=== PATIENT | female | born 1930 | race Caucasian/White ===

== ENCOUNTER 2016-09-24 12:04 | Emergency (ER) | payer MEDICARE, BC ==
[~2016-09-24] VITALS: Ht 157.5 cm; Wt 63.5 kg
[2016-09-24] MEDS ORDERED: TIMO5OPD OU (12:26)
[2016-09-24] MEDS ORDERED: METH25TAB (12:26)
[2016-09-24] MEDS ORDERED: VALSART/HCTZ (12:26)
[2016-09-24] MEDS ORDERED: LIAL1.2T PO (12:26)
[2016-09-24] MEDS ORDERED: TYLE325T5 PO (12:27)
[2016-09-24] MEDS ORDERED: KAOP262S PO (12:27)
[2016-09-24] MEDS ORDERED: ONDANSETRON 4MG/2ML VIAL (J2405) IV ONE (13:15)
[2016-09-24] MEDS ORDERED: NS 500 ML IV ONE (13:15)
[2016-09-24 13:24] LABS: BASO % 0.3 % (0.0-1.0); EOS % 0.4 % (0.0-3.0); LARGE UNSTAINED CELL # 0.1 K/mm3 (0.0-0.4); LYMPH # 0.4 K/mm3 (1.5-4.5); LYMPH % 8.4 % (24.0-44.0); MEAN CORPUSCULAR HEMOGLOBIN 30.2 pg (27.0-33.0); MEAN CORPUSCULAR HGB CONC 33.6 g/dl (32.0-36.5); MEAN CORPUSCULAR VOLUME 90.1 fl (80.0-96.0); MONO # 0.4 K/mm3 (0.0-0.8); MONO % 10.3 % (0.0-5.0); NEUTROPHILS % 77.6 % (36.0-66.0); PLATELET COUNT, AUTOMATED 165 k/mm3 (150-450); RED CELL DISTRIBUTION WIDTH 13.6 % (11.5-14.5); WHITE BLOOD COUNT 3.8 K/mm3 (4.0-10.0)
[2016-09-24 13:33] LABS: ALBUMIN 3.7 GM/DL (3.2-5.2); ALKALINE PHOSPHATASE 50 U/L (45-117); ALT/SGPT 30 U/L (12-78); ANION GAP 8 MEQ/L (8-16); AST/SGOT 22 U/L (15-37); BILIRUBIN,DIRECT 0.1 MG/DL (0.0-0.2); BILIRUBIN,TOTAL 0.4 MG/DL (0.2-1.0); BLOOD UREA NITROGEN 16 MG/DL (7-18); CALCIUM LEVEL 9.1 MG/DL (8.8-10.2); CARBON DIOXIDE LEVEL 24 MEQ/L (21-32); CHLORIDE LEVEL 105 MEQ/L (98-107); CREATININE FOR GFR 0.76 MG/DL (0.55-1.02); GLOMERULAR FILTRATION RATE > 60.0 (>32); GLUCOSE, FASTING 113 MG/DL (83-110); POTASSIUM SERUM 3.3 MEQ/L (3.5-5.1); SODIUM LEVEL 137 MEQ/L (136-145); TOTAL PROTEIN 7.4 GM/DL (6.4-8.2)
[2016-09-24 16:59] VITALS: BP 163/71
[2016-09-24] MEDS ORDERED: ZOFR4TAB3 PO (17:54)
[2016-09-24] MEDS: POTASSIUM CHLORIDE 10 MEQ SR TABLET PO ONE ×2 (18:15→18:32)
[2016-09-26] MEDS ORDERED: ACETAMINOPHEN TAB 650MG DOSE (2X325MG) PO PRN (15:15)
[2016-09-26] MEDS ORDERED: ONDANSETRON 4MG/2ML VIAL (J2405) IV PRN (15:15)
[2016-09-26] MEDS ORDERED: NS 1,000 ML IV SCH (15:18)
--- NOTE | 2016-09-26 15:28 | HPEPDOC ---
Medical History and Physical Date of Admission 09/26/16 History and Physical ATTENDING: Dr. 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 Dr Neetu Martinez CC: diarrhea HPI: [id number] with a past medical history significant for recent ED visit 09/24/16 for N/V, diarrhea. She was diagnosed with Rotavirus and discharged home. Pt states N/V resolved, chills resoved but diarrhea has persisted. She was initially using Kaopectate for symptoms but changed to Imodium. She states diarrhea was not resolved and she was feeling fatigued with generalized abdominal pain so she came to ED today. She has had 3 BM today prior to coming to ED. She received 500cc bolus in ED. Denies any MIKE, CP, SOB, cough, palpitations, or changes in bladder habits. Upon presentation to the hospital the patient was found to have abdominal pain/ colitis, thus the hospitalist team was consulted. PMHx: Hyperthyroid- Dr Neetu Martinez osteoporosis Dr Neetu Martinez h/o colitis glaucoma HTN hypomagnesemia PSHX: appendectomy Colonoscopy 2001. Nubia. Diverticulosis. SOCHX: Resides in: [facility] Marital Status: Kids: 2 Employment: retired, owned [employer] Tobacco use: denies ETOH: occaas glass of wine Illicit Drugs: Denies Recent travel: denies Advanced directives: HCP Karla Adkins. [phone] FAMHX: Mother: old age Father: [place] Siblings: brother Emphysema Children: Alive, son with h/o Crohn's Unexpected deaths due to medical reasons: None. ROS: As noted in HPI, otherwise 11pt ROS of systems reviewed and unremarkable. PE: GEN: 86yoF, appears stated age. Well-nourished, well developed. No acute distress. Alert and oriented x 3. Pleasant, interactive. HEENT: Normocephalic, atraumatic. Pupils are equal, round, and reactive to light. Extraocular movements are intact. No nystagmus appreciated. Sclera are nonicteric. Conjunctiva without injection. Nose midline. Nasal turbinates without bogginess. EACs both patent BL. TMs both visualized and calderon with good cone of light, no bulging or erythema. No facial asymmetry. Moist mucous membranes. Dentition fair. Pharynx pink and moist. Neck supple, trachea midline. No lymphadenopathy or thyromegaly appreciated. CHEST: Regular rate and rhythm, +S1, +S2 LUNGS: Clear to auscultation bilaterally. No wheezes, rales, or rhonchi. Breathing appears symmetric and easy. Patient is speaking in full sentences. No accessory muscle use. ABD: Round, soft, mild TTP upper abdomen Rt and left and LLQ, non-distended. + Bowel sounds throughout. No rebound or guarding. No costovertebral angle tenderness. EXT: Pulses 2+ bilaterally dorsalis pedis and radial. No lower extremity edema appreciated. Chronic venous changes LEs b/l. SKIN: [place], dry, warm. No rashes. NEURO: Alert and oriented x 3. Cranial nerves III-XII are intact. No focal deficits appreciated. CT: A/P Noncalcified gallbladder calculi. Distended gallbladder without wall thickening. In the appropriate clinical context this could represent hydrops. There is no biliary duct dilatation. The pancreatic duct is visible and measures 3 mm in diameter which is upper normal. No evidence of pancreatitis. No hydronephrosis. No bowel distension. There is wall thickening of the hepatic flexure of the colon and of the proximal descending colon. This is nonspecific. In the appropriate clinical context could represent colitis. However, this could merely be artifact from under distension. No ascites or adenopathy. EKG: Sr First degree AVB, 63 bpm. GI panel 09/24/16 ROTAVIRUS A LA 1.1 OB neg in ED. A&P: 86yoF with a past medical history significant for recent ED visit 09/24/16 for N/V, diarrhea. She was diagnosed with Rotavirus and discharged home. Pt states N/V resolved, chills resoved but diarrhea has persisted. She was initially using Kaopectate for symptoms but changed to Imodium. She states diarrhea was not resolved and she was feeling fatigued with generalized abdominal pain so she came to ED today. The patient will be admitted to CT for at least [address] Jacobo's service. Pt is discussed with Dr Nunez. 1. Abdominal pain/diarrhea/gastroenteritis. GI panel 09/24/16 with Rotavirus. GI panel today pending, has not had BM in ED. Proceed with symptomatic treatment. Pt afebrile/no leukocytosis, does not appear to have colitis. Clear fluids and AAT. IVF x 500cc in ED will continue with 75cc/hr for gentle hydration. UA/UC/ BC pending. Zofran prn. Imodium as needed. 2. H/O colitis. Lialda. Stool OB neg in ED. 3. Hypokalemia. S/P supplement in ED. Recheck at 6 PM. 4. Hypomagnesemia. Check Mag level. 5. HTN. Cont Avapro/ HCTZ with hold parameter. 6. glaucoma. Cont outpt Timolol. 7. Hyperthyroid. Cont Tapazole. DVT prophylaxis. Lovenox. The patient is a Full code. Vital Signs Vital Signs Date Time Temp Pulse Resp B/P (MAP) Pulse Ox O2 Delivery O2 Flow Rate FiO2 09/24/16 17:44 70 09/24/16 16:59 163/71 (101) 09/24/16 16:49 97 09/24/16 12:29 98.1 18 Room Air Laboratory Data Labs 24H Item Value Date Time Sodium Level 137 MEQ/L 09/26/16 1033 Potassium Level 3.0 MEQ/L L 09/26/16 1033 Chloride Level 104 MEQ/L 09/26/16 1033 Carbon Dioxide Level 26 MEQ/L 09/26/16 1033 Anion Gap 7 MEQ/L L 09/26/16 1033 Blood Urea Nitrogen 12 MG/DL 09/26/16 1033 Creatinine 0.67 MG/DL 09/26/16 1033 Glomerular Filtration Rate > 60.0 09/26/16 1033 Fasting Glucose 88 MG/DL 09/26/16 1033 Lactic Acid Level 1.1 MMOL/L 09/26/16 1033 Calcium Level 8.1 MG/DL L 09/26/16 1033 Total Bilirubin 0.6 MG/DL 09/26/16 1033 Direct Bilirubin 0.2 MG/DL 09/26/16 1033 Aspartate Amino Transf (AST/SGOT) 34 U/L 09/26/16 1033 Alanine Aminotransferase (ALT/SGPT) 36 U/L 09/26/16 1033 Alkaline Phosphatase 42 U/L L 09/26/16 1033 Total Protein 7.0 GM/DL 09/26/16 1033 Albumin 3.3 GM/DL 09/26/16 1033 Albumin/Globulin Ratio 0.89 L 09/26/16 1033 Lipase 211 U/L 09/26/16 1033 White Blood Count 3.6 K/mm3 L 09/26/16 1033 Red Blood Count 4.53 M/mm3 09/26/16 1033 Hemoglobin 14.0 g/dl 09/26/16 1033 Hematocrit 40.5 % 09/26/16 1033 Mean Corpuscular Volume 89.4 fl 09/26/16 1033 Mean Corpuscular Hemoglobin 30.9 pg 09/26/16 1033 Mean Corpuscular Hemoglobin Concent 34.6 g/dl 09/26/16 1033 Red Cell Distribution Width 13.5 % 09/26/16 1033 Platelet Count 150 k/mm3 09/26/16 1033 Neutrophils (%) (Auto) 59.7 % 09/26/16 1033 Lymphocytes (%) (Auto) 25.1 % 09/26/16 1033 Monocytes (%) (Auto) 10.0 % H 09/26/16 1033 Eosinophils (%) (Auto) 0.8 % 09/26/16 1033 Basophils (%) (Auto) 0.5 % 09/26/16 1033 Large Unclassified Cells % 3.9 % 09/26/16 1033 Neutrophils # (Auto) 2.2 K/mm3 09/26/16 1033 Lymphocytes # (Auto) 1.0 K/mm3 L 09/26/16 1033 Monocytes # (Auto) 0.4 K/mm3 09/26/16 1033 Eosinophils # (Auto) 0.0 K/mm3 09/26/16 1033 Basophils # (Auto) 0.0 K/mm3 09/26/16 1033 Large Unclassified Cells # 0.1 K/mm3 09/26/16 1033 Prothrombin Time 13.9 SECONDS 09/26/16 1033 Prothromb Time International Ratio 1.06 09/26/16 1033 Activated Partial Thromboplast Time 24.1 SECONDS L 09/26/16 1033 Microbiology Microbiology 09/24/16 Gastrointestinal Tract Panel (PCR) - Final, Complete Rotavirus A Home Medications Scheduled (Valsartan/Hydrochlorothia 160-12.5 mg) 1 Tab Tab, 1 TAB PO DAILY (Osteo Bi-Flex Joint Shiel) 1 Tab Tab, 1 TAB PO DAILY (Viactiv 500-500-40 mg-Unt-Mcg) 1 Chw Chw, 2 CHW PO DAILY Cranberry (Cranberry) 400 Mg Tab, 400 MG PO BID Magnesium Chloride (Mag64) 64 Mg Tabcr, 64 MG PO DAILY Mesalamine (Lialda) 1.2 Gm Tab, 1.2 GRAM PO 3XW THURSDAY, THURSDAY, AND FRIDAYS Methimazole (Tapazole) 5 Mg Tab, 5 MG PO 5XW , THU,,SAT,SUN Multivitamins (Ocuvite Eye Health Formul) 1 Cap Cap, 1 CAP PO DAILY Multivitamins *[facility] STOCKED* (Thera M Plus *[facility] STOCKED*) 1 Tab Tab, 1 TAB PO DAILY Timolol Maleate (Timolol Maleate) 0.5 % Le, 1 DROP OU BID Scheduled PRN Acetaminophen (Tylenol) 325 Mg Tab, 650 MG PO Q6H PRN for pain Loperamide HCl (Loperamide A-D) 2 Mg Tab, 4 MG PO Q6H PRN for DIARRHEA Allergies Coded Allergies: No Known Allergies (Unverified , 09/24/16) Rayna Mccabe Sep 26, 2016 15:28
[2016-09-26] MEDS ORDERED: ENTER DRUG NAME HERE (PATIENT'S OWN MED) PO SCH (15:30)
[2016-09-26] MEDS ORDERED: LOPERAMIDE 2 MG CAP PO PRN (15:30)
[2016-09-26] MEDS ORDERED: TIMOLOL MALEATE 0.5% OPHTH SOLN 5 ML OU SCH (21:00)
[2016-09-27] MEDS ORDERED: hydroCHLOROthiazide 12.5 MG CAPSULE PO SCH (09:00)
[2016-09-27] MEDS ORDERED: MAGNESIUM CHLORIDE 64 MG TABCR (SLO MAG) PO SCH (09:00)
[2016-09-27] MEDS ORDERED: ENOXAPARIN 40 MG/0.4 ML SYRINGE (J1650) SC SCH (09:00)
[2016-09-27] MEDS ORDERED: VALSARTAN 80 MG TAB (DIOVAN) PO SCH (09:00)
== END 2016-09-24 18:35 | disposition home or self-care (01) ==
LOC: M ED 13:14
DX: A08.0 Rotaviral enteritis (principal); E87.6 Hypokalemia; K52.839 Microscopic colitis, unspecified; Z79.899 Other long term (current) drug therapy

== ENCOUNTER 2016-09-26 10:08 | Inpatient (IN) | payer MEDICARE, BC ==
[~2016-09-26] VITALS: Ht 157.5 cm; Wt 63.2 kg
[~2016-09-26 10:08] MED LIST: KAOP262S PO; LIAL1.2T PO; METH25TAB; TIMO5OPD OU; TYLE325T5 PO; VALSART/HCTZ; ZOFR4TAB3 PO
[2016-09-26] MEDS ORDERED: NS 500 ML IV ONE (10:30)
[2016-09-26 10:44] LABS: BASO % 0.5 % (0.0-1.0); EOS % 0.8 % (0.0-3.0); LARGE UNSTAINED CELL # 0.1 K/mm3 (0.0-0.4); LARGE UNSTAINED CELL % 3.9 % (0.0-4.0); LYMPH % 25.1 % (24.0-44.0); MEAN CORPUSCULAR HEMOGLOBIN 30.9 pg (27.0-33.0); MEAN CORPUSCULAR HGB CONC 34.6 g/dl (32.0-36.5); MEAN CORPUSCULAR VOLUME 89.4 fl (80.0-96.0); MONO # 0.4 K/mm3 (0.0-0.8); NEUTROPHILS # 2.2 K/mm3 (1.8-7.7); NEUTROPHILS % 59.7 % (36.0-66.0); PLATELET COUNT, AUTOMATED 150 k/mm3 (150-450); RED CELL DISTRIBUTION WIDTH 13.5 % (11.5-14.5); WHITE BLOOD COUNT 3.6 K/mm3 (4.0-10.0)
[2016-09-26 10:47] LABS: INR 1.06
[2016-09-26 11:07] LABS: ALBUMIN 3.3 GM/DL (3.2-5.2); ALBUMIN/GLOBULIN RATIO 0.89 (1.00-1.93); ALKALINE PHOSPHATASE 42 U/L (45-117); ALT/SGPT 36 U/L (12-78); ANION GAP 7 MEQ/L (8-16); AST/SGOT 34 U/L (15-37); BILIRUBIN,DIRECT 0.2 MG/DL (0.0-0.2); BILIRUBIN,TOTAL 0.6 MG/DL (0.2-1.0); BLOOD UREA NITROGEN 12 MG/DL (7-18); CALCIUM LEVEL 8.1 MG/DL (8.8-10.2); CARBON DIOXIDE LEVEL 26 MEQ/L (21-32); CHLORIDE LEVEL 104 MEQ/L (98-107); CREATININE FOR GFR 0.67 MG/DL (0.55-1.02); GLOMERULAR FILTRATION RATE > 60.0 (>32); GLUCOSE, FASTING 88 MG/DL (83-110); SODIUM LEVEL 137 MEQ/L (136-145)
[2016-09-26] MEDS ORDERED: KETOROLAC 30 MG/ML VIAL (J1885) IV ONE (12:00)
[2016-09-26] MEDS ORDERED: ISOVUE-370 76% 100ML VIAL (Q9967) As Ordered ONE (12:42)
[2016-09-26] MEDS ORDERED: LOPE2TAB3 PO (13:08)
[2016-09-26] MEDS ORDERED: TAPA5TAB PO (13:08)
[2016-09-26] MEDS ORDERED: VALS160T PO (13:10)
[2016-09-26] MEDS ORDERED: VITMTA PO (13:14)
[2016-09-26] MEDS ORDERED: CALC600T57 PO (13:14)
[2016-09-26] MEDS ORDERED: OSTETAB7 PO (13:14)
[2016-09-26] MEDS ORDERED: CRAN400T3 PO (13:14)
[2016-09-26] MEDS ORDERED: OCUVCAP5 PO (13:14)
[2016-09-26] MEDS ORDERED: MAGN64TASA PO (13:14)
[2016-09-26] MEDS ORDERED: VIAC8.5C PO (13:15)
--- NOTE | 2016-09-26 13:18 | REP ---
Half CT abdomen pelvis with IV contrast, without bowel contrast: Comparison is 2012, CT abdomen, pelvis not included. The visualized lung carlson are unremarkable. The hepatic parenchyma is homogeneous and unremarkable. There are noncalcified gallbladder calculi. The gallbladder distended measuring up to this 4.4 cm transverse diameter. This is compatible with hydrops in the appropriate clinical setting, however there is no gallbladder wall thickening or pericholecystic fluid. There is no intrahepatic or extrahepatic biliary duct dilatation. The pancreas is normal size. The pancreatic duct is visible measuring 3 mm in diameter which is upper normal to minimally distended. There is no peripancreatic inflammation. Spleen is unremarkable. The adrenals, kidneys and abdominal aorta are by O except for calcified atheroma. There is no bowel distension. There is mild wall thickening of the transverse colon at the hepatic flexure and of the descending colon. This could be artifact from incomplete colonic distension. In the appropriate clinical setting this could represent colitis. Pelvis: The uterus and adnexa are unremarkable. The bladder is distended but otherwise unremarkable. There is no adenopathy or ascites. The the patient indicates she has had appendectomy. Impression: Noncalcified gallbladder calculi. Distended gallbladder without wall thickening. In the appropriate clinical context this could represent hydrops. There is no biliary duct dilatation. The pancreatic duct is visible and measures 3 mm in diameter which is upper normal. No evidence of pancreatitis. No hydronephrosis. No bowel distension. There is wall thickening of the hepatic flexure of the colon and of the proximal descending colon. This is nonspecific. In the appropriate clinical context could represent colitis. However, this could merely be artifact from under distension. No ascites or adenopathy. Signed by Daquan Grayson MD 09/26/2016 01:10 P
--- NOTE | 2016-09-26 15:32 | HPEPDOC ---
Medical History and Physical Date of Admission 09/26/16 History and Physical 09/26/16 History and Physical ATTENDING: Dr. 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 Dr Neetu Martinez CC: diarrhea HPI: [id number] with a past medical history significant for recent ED visit 09/24/16 for N/V, diarrhea. She was diagnosed with Rotavirus and discharged home. Pt states N/V resolved, chills resoved but diarrhea has persisted. She was initially using Kaopectate for symptoms but changed to Imodium. She states diarrhea was not resolved and she was feeling fatigued with generalized abdominal pain so she came to ED today. She has had 3 BM today prior to coming to ED. She received 500cc bolus in ED. Denies any MIKE, CP, SOB, cough, palpitations, or changes in bladder habits. Upon presentation to the hospital the patient was found to have abdominal pain/ colitis, thus the hospitalist team was consulted. PMHx: Hyperthyroid- Dr Neetu Martinez osteoporosis Dr Neetu Martinez h/o colitis glaucoma HTN hypomagnesemia PSHX: appendectomy Colonoscopy 2001. Nubia. Diverticulosis. SOCHX: Resides in: [facility] Marital Status: Kids: 2 Employment: retired, owned [employer] Tobacco use: denies ETOH: occaas glass of wine Illicit Drugs: Denies Recent travel: denies Advanced directives: HCP Karla Adkins. [phone] FAMHX: Mother: old age Father: [place] Siblings: brother Emphysema Children: Alive, son with h/o Crohn's Unexpected deaths due to medical reasons: None. ROS: As noted in HPI, otherwise 11pt ROS of systems reviewed and unremarkable. PE: GEN: 86yoF, appears stated age. Well-nourished, well developed. No acute distress. Alert and oriented x 3. Pleasant, interactive. HEENT: Normocephalic, atraumatic. Pupils are equal, round, and reactive to light. Extraocular movements are intact. No nystagmus appreciated. Sclera are nonicteric. Conjunctiva without injection. Nose midline. Nasal turbinates without bogginess. EACs both patent BL. TMs both visualized and calderon with good cone of light, no bulging or erythema. No facial asymmetry. Moist mucous membranes. Dentition fair. Pharynx pink and moist. Neck supple, trachea midline. No lymphadenopathy or thyromegaly appreciated. CHEST: Regular rate and rhythm, +S1, +S2 LUNGS: Clear to auscultation bilaterally. No wheezes, rales, or rhonchi. Breathing appears symmetric and easy. Patient is speaking in full sentences. No accessory muscle use. ABD: Round, soft, mild TTP upper abdomen Rt and left and LLQ, non-distended. + Bowel sounds throughout. No rebound or guarding. No costovertebral angle tenderness. EXT: Pulses 2+ bilaterally dorsalis pedis and radial. No lower extremity edema appreciated. Chronic venous changes LEs b/l. SKIN: [place], dry, warm. No rashes. NEURO: Alert and oriented x 3. Cranial nerves III-XII are intact. No focal deficits appreciated. CT: A/P Noncalcified gallbladder calculi. Distended gallbladder without wall thickening. In the appropriate clinical context this could represent hydrops. There is no biliary duct dilatation. The pancreatic duct is visible and measures 3 mm in diameter which is upper normal. No evidence of pancreatitis. No hydronephrosis. No bowel distension. There is wall thickening of the hepatic flexure of the colon and of the proximal descending colon. This is nonspecific. In the appropriate clinical context could represent colitis. However, this could merely be artifact from under distension. No ascites or adenopathy. EKG: Sr First degree AVB, 63 bpm. GI panel 09/24/16 ROTAVIRUS A LA 1.1 OB neg in ED. A&P: 86yoF with a past medical history significant for recent ED visit 09/24/16 for N/V, diarrhea. She was diagnosed with Rotavirus and discharged home. Pt states N/V resolved, chills resoved but diarrhea has persisted. She was initially using Kaopectate for symptoms but changed to Imodium. She states diarrhea was not resolved and she was feeling fatigued with generalized abdominal pain so she came to ED today. The patient will be admitted to [place] for at least [address] Jacobo's service. Pt is discussed with Dr Nunez. 1. Abdominal pain/diarrhea/gastroenteritis. GI panel 09/24/16 with Rotavirus. GI panel today pending, has not had BM in ED. Proceed with symptomatic treatment. Pt afebrile/no leukocytosis, does not appear to have colitis. Clear fluids and AAT. IVF x 500cc in ED will continue with 75cc/hr for gentle hydration. UA/UC/ BC pending. Zofran prn. Imodium as needed. 2. H/O colitis. Lialda. Stool OB neg in ED. 3. Hypokalemia. S/P supplement in ED. Recheck at 6 PM. 4. Hypomagnesemia. Check Mag level. 5. HTN. Cont Avapro/ HCTZ with hold parameter. 6. glaucoma. Cont outpt Timolol. 7. Hyperthyroid. Cont Tapazole. DVT prophylaxis. Lovenox. The patient is a Full code. Vital Signs Vital Signs Date Time Temp Pulse Resp B/P (MAP) Pulse Ox O2 Delivery O2 Flow Rate FiO2 09/24/16 17:44 70 09/24/16 16:59 163/71 (101) 09/24/16 16:49 97 09/24/16 12:29 98.1 18 Room Air Laboratory Data Labs 24H Item Value Date Time Sodium Level 137 MEQ/L 09/26/16 1033 Potassium Level 3.0 MEQ/L L 09/26/16 1033 Chloride Level 104 MEQ/L 09/26/16 1033 Carbon Dioxide Level 26 MEQ/L 09/26/16 1033 Anion Gap 7 MEQ/L L 09/26/16 1033 Blood Urea Nitrogen 12 MG/DL 09/26/16 1033 Creatinine 0.67 MG/DL 09/26/16 1033 Glomerular Filtration Rate > 60.0 09/26/16 1033 Fasting Glucose 88 MG/DL 09/26/16 1033 Lactic Acid Level 1.1 MMOL/L 09/26/16 1033 Calcium Level 8.1 MG/DL L 09/26/16 1033 Total Bilirubin 0.6 MG/DL 09/26/16 1033 Direct Bilirubin 0.2 MG/DL 09/26/16 1033 Aspartate Amino Transf (AST/SGOT) 34 U/L 09/26/16 1033 Alanine Aminotransferase (ALT/SGPT) 36 U/L 09/26/16 1033 Alkaline Phosphatase 42 U/L L 09/26/16 1033 Total Protein 7.0 GM/DL 09/26/16 1033 Albumin 3.3 GM/DL 09/26/16 1033 Albumin/Globulin Ratio 0.89 L 09/26/16 1033 Lipase 211 U/L 09/26/16 1033 White Blood Count 3.6 K/mm3 L 09/26/16 1033 Red Blood Count 4.53 M/mm3 09/26/16 1033 Hemoglobin 14.0 g/dl 09/26/16 1033 Hematocrit 40.5 % 09/26/16 1033 Mean Corpuscular Volume 89.4 fl 09/26/16 1033 Mean Corpuscular Hemoglobin 30.9 pg 09/26/16 1033 Mean Corpuscular Hemoglobin Concent 34.6 g/dl 09/26/16 1033 Red Cell Distribution Width 13.5 % 09/26/16 1033 Platelet Count 150 k/mm3 09/26/16 1033 Neutrophils (%) (Auto) 59.7 % 09/26/16 1033 Lymphocytes (%) (Auto) 25.1 % 09/26/16 1033 Monocytes (%) (Auto) 10.0 % H 09/26/16 1033 Eosinophils (%) (Auto) 0.8 % 09/26/16 1033 Basophils (%) (Auto) 0.5 % 09/26/16 1033 Large Unclassified Cells % 3.9 % 09/26/16 1033 Neutrophils # (Auto) 2.2 K/mm3 09/26/16 1033 Lymphocytes # (Auto) 1.0 K/mm3 L 09/26/16 1033 Monocytes # (Auto) 0.4 K/mm3 09/26/16 1033 Eosinophils # (Auto) 0.0 K/mm3 09/26/16 1033 Basophils # (Auto) 0.0 K/mm3 09/26/16 1033 Large Unclassified Cells # 0.1 K/mm3 09/26/16 1033 Prothrombin Time 13.9 SECONDS 09/26/16 1033 Prothromb Time International Ratio 1.06 09/26/16 1033 Activated Partial Thromboplast Time 24.1 SECONDS L 09/26/16 1033 Microbiology Microbiology 09/24/16 Gastrointestinal Tract Panel (PCR) - Final, Complete Rotavirus A Home Medications Scheduled (Valsartan/Hydrochlorothia 160-12.5 mg) 1 Tab Tab, 1 TAB PO DAILY (Osteo Bi-Flex Joint Shiel) 1 Tab Tab, 1 TAB PO DAILY (Viactiv 500-500-40 mg-Unt-Mcg) 1 Chw Chw, 2 CHW PO DAILY Cranberry (Cranberry) 400 Mg Tab, 400 MG PO BID Magnesium Chloride (Mag64) 64 Mg Tabcr, 64 MG PO DAILY Mesalamine (Lialda) 1.2 Gm Tab, 1.2 GRAM PO 3XW THURSDAY, THURSDAY, AND FRIDAYS Methimazole (Tapazole) 5 Mg Tab, 5 MG PO 5XW , THU,THUR,SAT,SUN Multivitamins (Ocuvite Eye Health Formul) 1 Cap Cap, 1 CAP PO DAILY Multivitamins *[facility] STOCKED* (Thera M Plus *[facility] STOCKED*) 1 Tab Tab, 1 TAB PO DAILY Timolol Maleate (Timolol Maleate) 0.5 % Le, 1 DROP OU BID Scheduled PRN Acetaminophen (Tylenol) 325 Mg Tab, 650 MG PO Q6H PRN for pain Loperamide HCl (Loperamide A-D) 2 Mg Tab, 4 MG PO Q6H PRN for DIARRHEA Allergies Coded Allergies: No Known Allergies (Unverified , 09/24/16) Rayna Mccabe Sep 26, 2016 15:28 Vital Signs Vital Signs Date Time Temp Pulse Resp B/P (MAP) Pulse Ox O2 Delivery O2 Flow Rate FiO2 09/26/16 14:33 74 16 181/73 (109) 09/26/16 10:14 99.0 97 Room Air Laboratory Data Labs 24H Laboratory Tests 2 09/26/16 10:33: White Blood Count 3.6L, Red Blood Count 4.53, Hemoglobin 14.0, Hematocrit 40.5, Mean Corpuscular Volume 89.4, Mean Corpuscular Hemoglobin 30.9, Mean Corpuscular Hemoglobin Concent 34.6, Red Cell Distribution Width 13.5, Platelet Count 150, Neutrophils (%) (Auto) 59.7, Lymphocytes (%) (Auto) 25.1, Monocytes ( %) (Auto) 10.0H, Eosinophils (%) (Auto) 0.8, Basophils (%) (Auto) 0.5, Neutrophils # (Auto) 2.2, Lymphocytes # (Auto) 1.0L, Monocytes # (Auto) 0.4, Eosinophils # (Auto) 0.0, Basophils # (Auto) 0.0, Large Unclassified Cells % 3.9 , Large Unclassified Cells # 0.1, Prothrombin Time 13.9, Prothromb Time International Ratio 1.06, Activated Partial Thromboplast Time 24.1L, Anion Gap 7L, Glomerular Filtration Rate > 60.0, Lactic Acid Level 1.1, Calcium Level 8.1L , Aspartate Amino Transf (AST/SGOT) 34, Alanine Aminotransferase (ALT/SGPT) 36, Alkaline Phosphatase 42L, Total Bilirubin 0.6, Direct Bilirubin 0.2, Total Protein 7.0, Albumin 3.3, Albumin/Globulin Ratio 0.89L, Lipase 211 09/26/16 11:34: Urine Appearance CLEAR, Urine Color STRAW, Urine pH 7.0, Urine Specific Moran 1.002, Urine Protein NEGATIVE, Urine Glucose (UA) NEGATIVE, Urine Ketones 1+H, Urine Urobilinogen 0.2, Urine Bilirubin NEGATIVE, Urine Leukocyte Esterase 2+H, Urine Blood 1+H, Urine Nitrite NEGATIVE, Urine WBC (Auto) 0, Urine RBC (Auto) 3 , Urine Hyaline Casts (Auto) 0, Urine Bacteria (Auto) NEGATIVE, Urine Squamous Epithelial Cells 0, Urine Sperm (Auto) CBC/BMP Laboratory Tests 09/26/16 10:33 Red Blood Count 4.53, Mean Corpuscular Volume 89.4, Mean Corpuscular Hemoglobin 30.9, Mean Corpuscular Hemoglobin Concent 34.6, Red Cell Distribution Width 13.5 , Neutrophils (%) (Auto) 59.7, Lymphocytes (%) (Auto) 25.1, Monocytes (%) (Auto ) 10.0 H, Eosinophils (%) (Auto) 0.8, Basophils (%) (Auto) 0.5, Neutrophils # ( Auto) 2.2, Lymphocytes # (Auto) 1.0 L, Monocytes # (Auto) 0.4, Eosinophils # ( Auto) 0.0, Basophils # (Auto) 0.0 Home Medications Scheduled (Valsartan/Hydrochlorothia 160-12.5 mg) 1 Tab Tab, 1 TAB PO DAILY (Osteo Bi-Flex Joint Shiel) 1 Tab Tab, 1 TAB PO DAILY (Viactiv 500-500-40 mg-Unt-Mcg) 1 Chw Chw, 2 CHW PO DAILY Cranberry (Cranberry) 400 Mg Tab, 400 MG PO BID Magnesium Chloride (Mag64) 64 Mg Tabcr, 64 MG PO DAILY Mesalamine (Lialda) 1.2 Gm Tab, 1.2 GRAM PO 3XW THURSDAY, THURSDAY, AND FRIDAYS Methimazole (Tapazole) 5 Mg Tab, 5 MG PO 5XW , THU,,SAT,SUN Multivitamins (Ocuvite Eye Health Formul) 1 Cap Cap, 1 CAP PO DAILY Multivitamins *[facility] STOCKED* (Thera M Plus *[facility] STOCKED*) 1 Tab Tab, 1 TAB PO DAILY Timolol Maleate (Timolol Maleate) 0.5 % Le, 1 DROP OU BID Scheduled PRN Acetaminophen (Tylenol) 325 Mg Tab, 650 MG PO Q6H PRN for pain Loperamide HCl (Loperamide A-D) 2 Mg Tab, 4 MG PO Q6H PRN for DIARRHEA Allergies Coded Allergies: No Known Allergies (Unverified , 09/24/16) Rayna Mccabe Sep 26, 2016 15:32
[2016-09-26] MEDS ORDERED: LOPERAMIDE 2 MG CAP PO PRN (15:45)
[2016-09-26] MEDS ORDERED: ONDANSETRON 4MG/2ML VIAL (J2405) IV PRN (15:45)
[2016-09-26 16:01] LABS: MAGNESIUM LEVEL 1.8 MG/DL (1.8-2.4)
[2016-09-26 17:00] VITALS: BP 168/90
[2016-09-26] MEDS: VALSARTAN 80 MG TAB (DIOVAN) PO SCH (17:51)
[2016-09-26] MEDS: NS 1,000 ML IV SCH (17:53)
[2016-09-26 18:48] LABS: ANION GAP 9 MEQ/L (8-16); BLOOD UREA NITROGEN 10 MG/DL (7-18); CALCIUM LEVEL 7.8 MG/DL (8.8-10.2); CARBON DIOXIDE LEVEL 26 MEQ/L (21-32); CHLORIDE LEVEL 105 MEQ/L (98-107); CREATININE FOR GFR 0.59 MG/DL (0.55-1.02); GLOMERULAR FILTRATION RATE > 60.0 (>32); GLUCOSE, FASTING 82 MG/DL (83-110); POTASSIUM SERUM 3.1 MEQ/L (3.5-5.1); SODIUM LEVEL 140 MEQ/L (136-145)
[2016-09-26] MEDS ORDERED: POTASSIUM CHLORIDE 10 MEQ SR TABLET PO ONE (19:15)
[2016-09-26] MEDS: TIMOLOL MALEATE 0.5% OPHTH SOLN 5 ML OU SCH (20:40)
[2016-09-26] MEDS: ACETAMINOPHEN TAB 650MG DOSE (2X325MG) PO PRN (20:41)
[2016-09-26 22:00] VITALS: BP 158/70
[2016-09-27] MEDS: NS 1,000 ML IV SCH (05:37)
[2016-09-27 06:00] VITALS: BP 128/62
[2016-09-27 06:34] LABS: MEAN CORPUSCULAR HEMOGLOBIN 30.7 pg (27.0-33.0); MEAN CORPUSCULAR HGB CONC 34.3 g/dl (32.0-36.5); MEAN CORPUSCULAR VOLUME 89.5 fl (80.0-96.0); RED CELL DISTRIBUTION WIDTH 13.3 % (11.5-14.5); WHITE BLOOD COUNT 3.2 K/mm3 (4.0-10.0)
[2016-09-27 06:48] LABS: ALBUMIN/GLOBULIN RATIO 1.11 (1.00-1.93); ALKALINE PHOSPHATASE 37 U/L (45-117); ALT/SGPT 28 U/L (12-78); ANION GAP 10 MEQ/L (8-16); AST/SGOT 22 U/L (15-37); BILIRUBIN,TOTAL 0.5 MG/DL (0.2-1.0); BLOOD UREA NITROGEN 8 MG/DL (7-18); CARBON DIOXIDE LEVEL 24 MEQ/L (21-32); CHLORIDE LEVEL 108 MEQ/L (98-107); CREATININE FOR GFR 0.52 MG/DL (0.55-1.02); GLOMERULAR FILTRATION RATE > 60.0 (>32); GLUCOSE, FASTING 78 MG/DL (83-110); MAGNESIUM LEVEL 1.9 MG/DL (1.8-2.4); POTASSIUM SERUM 3.1 MEQ/L (3.5-5.1); SODIUM LEVEL 142 MEQ/L (136-145); TOTAL PROTEIN 5.7 GM/DL (6.4-8.2)
[2016-09-27] MEDS: VALSARTAN 80 MG TAB (DIOVAN) PO SCH (10:09)
[2016-09-27] MEDS: MULTIVITAMINS/MINERALS THERAP 1 TAB PO SCH (10:09)
[2016-09-27] MEDS: hydroCHLOROthiazide 12.5 MG CAPSULE PO SCH (10:09)
[2016-09-27] MEDS: OCUVITE 1 TAB PO SCH (10:09)
[2016-09-27] MEDS: MAGNESIUM CHLORIDE 64 MG TABCR (SLO MAG) PO SCH (10:10)
[2016-09-27] MEDS: ENOXAPARIN 40 MG/0.4 ML SYRINGE (J1650) SC SCH (10:10)
[2016-09-27] MEDS: TIMOLOL MALEATE 0.5% OPHTH SOLN 5 ML OU SCH ×2 (10:10→20:59)
[2016-09-27] MEDS: ACETAMINOPHEN TAB 650MG DOSE (2X325MG) PO PRN (12:39)
--- NOTE | 2016-09-27 13:40 | IPNPDOC ---
Subjective Date Seen The patient was seen on 09/27/16. Subjective Chief Complaint/HPI The patient is a 86-year-old female admitted with a reason for visit of Rotaviral Enteritis. Constitutional: Denies: Chills, Fever, Night Sweats Gastrointestinal: Denies: Nausea, Vomiting, Abdominal Pain, Diarrhea, Constipation Objective Physical Examination General Exam: Positive: No Acute Distress Eye Exam: Positive: PERRLA, Conjunctiva & lids normal Chest Exam: Positive: Clear to auscultation Heart Exam: Positive: Rate Normal Abdomen Exam: Positive: Normal bowel sounds Extremity Exam: Positive: Normal pulses, Negative: Clubbing, Cyanosis, Edema Assessment /Plan Problems (1) Rotaviral enteritis Status: Acute Problem Text: * continue IV fluids at 75cc /hr * diarrhea resolved * will continue to monitor * advance diet (2) Leukopenia Status: Acute Problem Text: * likely secondary to gastroenteritis * continue to monitor (3) Hypokalemia Status: Acute Problem Text: * replace and recheck (4) Diarrhea Status: Acute Response to Treatment: Improving (5) Hypothyroidism Status: Chronic Response to Treatment: Stable (6) HTN (hypertension) Status: Chronic Response to Treatment: Stable (7) Glaucoma Status: Chronic Response to Treatment: Stable (8) Osteoporosis Status: Chronic Response to Treatment: Stable Plan/VTE VTE Prophylaxis Ordered?: Yes VS, [facility]&O[facility] Vital Signs/I&O Vital Signs Date Time Temp Pulse Resp B/P (MAP) Pulse Ox O2 Delivery O2 Flow Rate FiO2 09/27/16 10:09 138/82 09/27/16 06:00 98.6 69 15 95 Room Air I&O- Last 24 Hours up to 6 AM 09/27/16 06:00 Intake Total 2480 ml Output Total 1425 ml Balance 1055 ml Laboratory Data 24H LABS Laboratory Tests 2 09/26/16 18:16: Anion Gap 9, Glomerular Filtration Rate > 60.0, Blood Urea Nitrogen 10, Creatinine 0.59, Sodium Level 140, Potassium Level 3.1L, Chloride Level 105, Carbon Dioxide Level 26, Calcium Level 7.8L 09/27/16 06:08: Anion Gap 10, Glomerular Filtration Rate > 60.0, Blood Urea Nitrogen 8, Creatinine 0.52L, Sodium Level 142, Potassium Level 3.1L, Chloride Level 108H, Carbon Dioxide Level 24, Calcium Level 7.0L, Aspartate Amino Transf (AST/SGOT) 22, Alanine Aminotransferase (ALT/SGPT) 28, Alkaline Phosphatase 37L, Total Bilirubin 0.5, Total Protein 5.7L, Albumin 3.0L, Magnesium Level 1.9, Albumin/ Globulin Ratio 1.11 CBC/BMP Laboratory Tests 09/26/16 18:16 Calcium Level 7.8 L 09/27/16 06:08 Calcium Level 7.0 L, Red Blood Count 4.09, Mean Corpuscular Volume 89.5, Mean Corpuscular Hemoglobin 30.7, Mean Corpuscular Hemoglobin Concent 34.3, Red Cell Distribution Width 13.3, Aspartate Amino Transf (AST/SGOT) 22, Alanine Aminotransferase (ALT/SGPT) 28, Alkaline Phosphatase 37 L, Total Bilirubin 0.5, Total Protein 5.7 L, Albumin 3.0 L Microbiology Microbiology 09/26/16 Blood Culture, Received Pending 09/26/16 Blood Culture, Received Pending 09/26/16 Urine Culture, Received Pending JUANY CAZARES DO Sep 27, 2016 13:40
--- NOTE | 2016-09-27 13:54 | ECGEPIP ---
Stationary ECG Study [facility] Test Date: 2016-09-26 Pat Name: ORIANA BRASHER Department: Room: [place] [address] Gender: F [employer]: [employer] : 1930 Requested By: SUSHIL Mendoza Order Number: [id number] Reading MD: Andrea Samayoa Measurements Intervals [place] Rate: 63 P: 72 SC: 211 QRS: 23 QRSD: 97 T: 51 QT: 404 QTc: 415 Interpretive Statements SINUS RHYTHM WITH FIRST DEGREE AV BLOCK Electronically Signed On 09-27-2016 13:54:31 EDT by Andrea Samayoa
[2016-09-27 14:00] VITALS: BP 130/60
[2016-09-27] MEDS: KCL 10MEQ IN D5/0.45NS 1000ML 1,000 ML IV SCH (14:33)
[2016-09-27] MEDS: POTASSIUM CHLORIDE 10 MEQ SR TABLET PO SCH (18:03)
[2016-09-27 22:00] VITALS: BP 130/90
[2016-09-28] MEDS: KCL 10MEQ IN D5/0.45NS 1000ML 1,000 ML IV SCH ×2 (04:19→16:25)
[2016-09-28 06:00] VITALS: BP 138/65
[2016-09-28 06:04] LABS: MEAN CORPUSCULAR HEMOGLOBIN 31.6 pg (27.0-33.0); MEAN CORPUSCULAR HGB CONC 35.9 g/dl (32.0-36.5); MEAN CORPUSCULAR VOLUME 87.9 fl (80.0-96.0); RED CELL DISTRIBUTION WIDTH 13.2 % (11.5-14.5); WHITE BLOOD COUNT 4.5 K/mm3 (4.0-10.0)
[2016-09-28 06:21] LABS: ALBUMIN 3.1 GM/DL (3.2-5.2); ALBUMIN/GLOBULIN RATIO 1.15 (1.00-1.93); ALKALINE PHOSPHATASE 43 U/L (45-117); ALT/SGPT 31 U/L (12-78); ANION GAP 10 MEQ/L (8-16); AST/SGOT 19 U/L (15-37); BILIRUBIN,TOTAL 0.5 MG/DL (0.2-1.0); BLOOD UREA NITROGEN 5 MG/DL (7-18); CALCIUM LEVEL 7.7 MG/DL (8.8-10.2); CARBON DIOXIDE LEVEL 24 MEQ/L (21-32); CHLORIDE LEVEL 109 MEQ/L (98-107); CREATININE FOR GFR 0.46 MG/DL (0.55-1.02); GLOMERULAR FILTRATION RATE > 60.0 (>32); GLUCOSE, FASTING 95 MG/DL (83-110); POTASSIUM SERUM 3.6 MEQ/L (3.5-5.1); SODIUM LEVEL 143 MEQ/L (136-145); TOTAL PROTEIN 5.8 GM/DL (6.4-8.2)
[2016-09-28] MEDS: POTASSIUM CHLORIDE 10 MEQ SR TABLET PO SCH (09:00)
[2016-09-28] MEDS: MAGNESIUM CHLORIDE 64 MG TABCR (SLO MAG) PO SCH (09:53)
[2016-09-28] MEDS: VALSARTAN 80 MG TAB (DIOVAN) PO SCH (09:53)
[2016-09-28] MEDS: MULTIVITAMINS/MINERALS THERAP 1 TAB PO SCH (09:53)
[2016-09-28] MEDS: TIMOLOL MALEATE 0.5% OPHTH SOLN 5 ML OU SCH ×2 (09:53→21:44)
[2016-09-28] MEDS: OCUVITE 1 TAB PO SCH (09:54)
[2016-09-28] MEDS: hydroCHLOROthiazide 12.5 MG CAPSULE PO SCH (09:54)
[2016-09-28] MEDS: ACETAMINOPHEN TAB 650MG DOSE (2X325MG) PO PRN ×3 (09:55→21:44)
[2016-09-28] MEDS: ENOXAPARIN 40 MG/0.4 ML SYRINGE (J1650) SC SCH (09:56)
--- NOTE | 2016-09-28 12:56 | REP ---
Bilateral lower extremity deep vein duplex ultrasound: The deep veins demonstrate normal compression, normal Doppler color flow and normal Doppler waveforms with respiration augmentation at multiple levels bilaterally. There is no deep vein thrombus on the right on the left. There is a Boone's cyst in the right popliteal fossa measuring 4.5 x 0.0 x 2.1 cm. 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 In the right lower extremity in the upper medial calf there is a complex linear fluid collection measuring 7.8 x 0.6 x 3.6 cm, possibly secondary to a muscle or tendon tear. The greater saphenous veins cannot be identified on the right on the left. The patient states he had greater saphenous vein stripping approximately 60 years ago. Signed by Daquan Grayson MD 09/28/2016 12:48 P
[2016-09-28 14:00] VITALS: BP 122/64
--- NOTE | 2016-09-28 14:18 | IPNPDOC ---
Subjective Date Seen The patient was seen on 09/28/16. Subjective Chief Complaint/HPI The patient is a 86-year-old female admitted with a reason for visit of Rotaviral Enteritis. Events since last encounter pt seen and examined, denies any diarrhea or abd pain, tolerated diet yesterday no nausea or vomiting, is complaining of right calf pain stating it's like a leg cramp Constitutional: Denies: Chills, Fever, Night Sweats Cardiovascular: Denies: Chest Pain, Palpitations, Orthopnea, Paroxysmal Noc. Dyspnea, Lt Headedness Musculoskeletal: Reports: Leg Pain Objective Physical Examination General Exam: Positive: No Acute Distress Eye Exam: Positive: PERRLA, Conjunctiva & lids normal Chest Exam: Positive: Clear to auscultation Heart Exam: Positive: Rate Normal Abdomen Exam: Positive: Normal bowel sounds Extremity Exam: Positive: Normal pulses, Tenderness (right calf), Negative: Clubbing, Cyanosis, Edema Assessment /Plan Problems (1) Right calf pain Status: Acute Problem Text: * vascular ultrasound ruled out DVT * there is a right prieto cyst and a mid calf fluid collection 7X.6X3 cm may be due to tendon injury, pt denies trauma but states it's achy pain * per nurse pt is unable to put weight on her leg * will consult ortho * will put heat pad on leg (2) Rotaviral enteritis Status: Acute Problem Text: * continue IV fluids at 75cc /hr * diarrhea resolved * will continue to monitor * advance diet (3) Leukopenia Status: Resolved Problem Text: * likely secondary to gastroenteritis * continue to monitor (4) Hypokalemia Status: Resolved Problem Text: * potassium level normal today * mag level was checked yesterday and also within normal limit (5) Diarrhea Status: Resolved Response to Treatment: Stable (6) Hypothyroidism Status: Chronic Response to Treatment: Stable (7) HTN (hypertension) Status: Chronic Response to Treatment: Stable (8) Glaucoma Status: Chronic Response to Treatment: Stable (9) Osteoporosis Status: Chronic Response to Treatment: Stable Plan/VTE VTE Prophylaxis Ordered?: Yes VS, I&O, 24H, Fishbone Vital Signs/I&O Vital Signs Date Time Temp Pulse Resp B/P (MAP) Pulse Ox O2 Delivery O2 Flow Rate FiO2 09/28/16 09:53 140/72 09/28/16 06:00 97.6 62 17 94 Room Air I&O- Last 24 Hours up to 6 AM 09/28/16 06:00 Intake Total 2100 ml Output Total 900 ml Balance 1200 ml Laboratory Data 24H LABS Laboratory Tests 2 09/28/16 05:29: Anion Gap 10, Glomerular Filtration Rate > 60.0, Blood Urea Nitrogen 5L, Creatinine 0.46L, Sodium Level 143, Potassium Level 3.6, Chloride Level 109H, Carbon Dioxide Level 24, Calcium Level 7.7L, Aspartate Amino Transf (AST/SGOT) 19, Alanine Aminotransferase (ALT/SGPT) 31, Alkaline Phosphatase 43L, Total Bilirubin 0.5, Total Protein 5.8L, Albumin 3.1L, Albumin/Globulin Ratio 1.15 CBC/BMP Laboratory Tests 09/28/16 05:29 Red Blood Count 4.07, Mean Corpuscular Volume 87.9, Mean Corpuscular Hemoglobin 31.6, Mean Corpuscular Hemoglobin Concent 35.9, Red Cell Distribution Width 13.2 , Calcium Level 7.7 L, Aspartate Amino Transf (AST/SGOT) 19, Alanine Aminotransferase (ALT/SGPT) 31, Alkaline Phosphatase 43 L, Total Bilirubin 0.5, Total Protein 5.8 L, Albumin 3.1 L Microbiology Microbiology 09/26/16 Blood Culture - Preliminary, Resulted No growth after 24 hours . All specim... 09/26/16 Blood Culture - Preliminary, Resulted No growth after 24 hours . All specim... 09/26/16 Urine Culture - Final, Complete Escherichia Coli JUANY CAZARES DO Sep 28, 2016 14:17
--- NOTE | 2016-09-28 17:01 | REP ---
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 I suspect there is a small suprapatellar effusion. There is no fracture. There is mild demineralization. The study is otherwise unremarkable. Signed by Daquan Grayson MD 09/28/2016 04:50 P
--- NOTE | 2016-09-28 17:01 | REP ---
Right tibia-fibula four views: There is mild demineralization. There is no fracture or dislocation. No calcifications or foreign bodies. Impression: Mild demineralization, otherwise negative right tibia-fibula. Signed by Daquan Grayson MD 09/28/2016 04:51 P
[2016-09-28 22:00] VITALS: BP 139/62
[2016-09-29] MEDS: KCL 10MEQ IN D5/0.45NS 1000ML 1,000 ML IV SCH (05:22)
[2016-09-29 06:00] VITALS: BP 133/63
[2016-09-29] MEDS: POTASSIUM CHLORIDE 10 MEQ SR TABLET PO SCH (09:59)
[2016-09-29] MEDS: hydroCHLOROthiazide 12.5 MG CAPSULE PO SCH (10:00)
[2016-09-29] MEDS: OCUVITE 1 TAB PO SCH (10:00)
[2016-09-29] MEDS: MAGNESIUM CHLORIDE 64 MG TABCR (SLO MAG) PO SCH (10:00)
[2016-09-29] MEDS: VALSARTAN 80 MG TAB (DIOVAN) PO SCH (10:00)
[2016-09-29] MEDS: ENOXAPARIN 40 MG/0.4 ML SYRINGE (J1650) SC SCH (10:01)
[2016-09-29] MEDS: MULTIVITAMINS/MINERALS THERAP 1 TAB PO SCH (10:01)
[2016-09-29] MEDS: TIMOLOL MALEATE 0.5% OPHTH SOLN 5 ML OU SCH ×2 (10:01→20:22)
[2016-09-29] MEDS: ACETAMINOPHEN TAB 650MG DOSE (2X325MG) PO PRN ×2 (10:08→19:31)
[2016-09-29 14:00] VITALS: BP 135/64
--- NOTE | 2016-09-29 15:00 | IPNPDOC ---
Date Seen The patient was seen on 09/29/16. Progress Note SUBJECTIVE: Patient is comfortable, tells me her Rt leg pain is improving and she is able to bare weight. No other complaints at this time OBJECTIVE PHYSICAL EXAMINATION: VITAL SIGNS: Please see below. GENERAL: Pleasant elderly female laying in bed no distress HEENT: Pupils equally round reactive to light moist mucous membranes CARDIOVASCULAR: S1-S2 regular crescendo decrescendo systolic murmur. RESPIRATORY: Clear to auscultation. ABDOMINAL: Bowel sounds present abdomen soft nontender EXTREMITIES: Right lower extremity trace edema wrapped and elevated. NEUROLOGICAL: Nonfocal LABORATORY DATA: Please see below. MICROBIOLOGY: Please see below. IMAGING: Rt knee xray: There is no fracture. There is mild demineralization. The study is otherwise unremarkable. Rt Tib-Fib Xray: Mild demineralization, otherwise negative right tibia-fibula. LE Duplex: There is a Boone's cyst in the right popliteal fossa measuring 4.5 x 0.0 x 2.1 cm. 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 In the right lower extremity in the upper medial calf there is a complex linear fluid collection measuring 7.8 x 0.6 x 3.6 cm, possibly secondary to a muscle or tendon tear. DVT prophylaxis ordered?: Lovenox ASSESSMENT AND PLAN: This is a 86-year-old Female with Rt knee/calf pain. PROBLEMS: (1) Right calf pain Status: Acute Problem Text: Possibly related to osteoarthritis vs. tendon injury with effusion or possibly boone's cyst. Appears to be working, case was discussed with orthopedic surgery previously. Pt continues to work with PT. Continue with heat and pain meds (2) Rotaviral enteritis Status: Acute Problem Text: Resolved diarrhea resolved will continue to monitor (3) Leukopenia Status: Resolved Problem Text: likely secondary to gastroenteritis (4) Hypokalemia Status: Resolved Problem Text: potassium level normal today, continue with repletion and daily monitoring (5) Hyperthyroidism Status: Chronic Response to Treatment: Stable, c/w methimazole (6) HTN (hypertension) Status: Chronic Response to Treatment: Stable, c/w valsartan, hctz (7) Glaucoma Status: Chronic Response to Treatment: Stable c/w timolol DISPOSITION: f/u MRI, c/w with PT, likely d/c home in near future. VS, I&O, 24H, Fishbone Vital Signs/I&O Vital Signs Date Time Temp Pulse Resp B/P (MAP) Pulse Ox O2 Delivery O2 Flow Rate FiO2 09/29/16 14:00 99.5 67 18 135/64 (87) 98 Room Air I&O- Last 24 Hours up to 6 AM 09/29/16 06:00 Intake Total 2160 ml Output Total 1200 ml Balance 960 ml Laboratory Data Microbiology Microbiology 09/26/16 Blood Culture - Preliminary, Resulted No Growth after 48 hours. All Specime... 09/26/16 Blood Culture - Preliminary, Resulted No Growth after 48 hours. All Specime... 09/26/16 Urine Culture - Final, Complete Escherichia Coli DAKSHA RIZVI MD Sep 29, 2016 15:00
[2016-09-30 06:00] VITALS: BP 132/62
[2016-09-30 08:49] LABS: BLOOD UREA NITROGEN 7 MG/DL (7-18); CALCIUM LEVEL 8.5 MG/DL (8.8-10.2); CARBON DIOXIDE LEVEL 28 MEQ/L (21-32); CHLORIDE LEVEL 101 MEQ/L (98-107); CREATININE FOR GFR 0.62 MG/DL (0.55-1.02); GLOMERULAR FILTRATION RATE > 60.0 (>32); GLUCOSE, FASTING 108 MG/DL (83-110)
[2016-09-30 08:50] LABS: MEAN CORPUSCULAR HEMOGLOBIN 31.1 pg (27.0-33.0); MEAN CORPUSCULAR HGB CONC 35.1 g/dl (32.0-36.5); MEAN CORPUSCULAR VOLUME 88.7 fl (80.0-96.0); RED CELL DISTRIBUTION WIDTH 13.2 % (11.5-14.5); WHITE BLOOD COUNT 6.5 K/mm3 (4.0-10.0)
[2016-09-30 08:59] LABS: ANION GAP 5 MEQ/L (8-16)
[2016-09-30 09:01] LABS: SODIUM LEVEL 134 MEQ/L (136-145)
[2016-09-30] MEDS: OCUVITE 1 TAB PO SCH (09:14)
[2016-09-30] MEDS: hydroCHLOROthiazide 12.5 MG CAPSULE PO SCH (09:15)
[2016-09-30] MEDS: MULTIVITAMINS/MINERALS THERAP 1 TAB PO SCH (09:15)
[2016-09-30] MEDS: MAGNESIUM CHLORIDE 64 MG TABCR (SLO MAG) PO SCH (09:15)
[2016-09-30] MEDS: POTASSIUM CHLORIDE 10 MEQ SR TABLET PO SCH (09:15)
[2016-09-30] MEDS: ENOXAPARIN 40 MG/0.4 ML SYRINGE (J1650) SC SCH (09:16)
[2016-09-30] MEDS: TIMOLOL MALEATE 0.5% OPHTH SOLN 5 ML OU SCH ×2 (09:16→20:14)
[2016-09-30] MEDS: VALSARTAN 80 MG TAB (DIOVAN) PO SCH (09:17)
[2016-09-30] MEDS: ACETAMINOPHEN TAB 650MG DOSE (2X325MG) PO PRN ×2 (09:18→20:18)
--- NOTE | 2016-09-30 09:51 | REP ---
MRI RIGHT LOWER LEG: TECHNIQUE: Multiple sequences obtained in the axial, coronal and sagittal planes. A thin area of fluid is seen extending along the superficial surface of the medial head of the gastrocnemius muscle communicating with the popliteal fossa. The thickness of the fluid is approximately 4 mm. The total length of extension inferiorly from the knee joint is approximately 14 cm. Findings are most consistent with a ruptured popliteal cyst with fluid dissecting into the fascial plane along the superficial surface of the medial head of the gastrocnemius muscle. No other areas of abnormal signal or fluid are seen. Venous varicosities are seen in the superficial subcutaneous soft tissues both anteriorly and medially. Tibia and fibula demonstrate relatively normal marrow signal with no abnormality. IMPRESSION: Elongated thin fluid collection along the superficial surface of the medial head of the gastrocnemius muscle communicating with the popliteal fossa. Findings are most consistent with a ruptured popliteal cyst dissecting into the fascial plane along the superficial surface of the medial head of the gastrocnemius muscle. Signed by Daquan Camarillo MD 09/30/2016 01:46 P
--- NOTE | 2016-09-30 09:51 | REP ---
MRI RIGHT KNEE WITH AND WITHOUT CONTRAST: TECHNIQUE: Axial proton density fat saturation, sagittal proton density T2 STIR, water excitation, coronal proton density, proton density fat saturation. Axial T1 fat sat, post IV gadolinium axial and sagittal T1 fat sagittal with the intravenous administration of 13 mL of gadolinium. There is a complex tear of both the anterior and posterior horns of the lateral meniscus. There is also a complex tear of the body of the medial meniscus as well as the posterior horn of the medial meniscus. The cruciate and collateral ligaments are intact. Extensor mechanism is intact. 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 There is mild subchondral cystic change and edema in the peripheral medial tibial plateau. There is a large joint effusion. Medial and lateral patellar retinacula are intact. Diffuse ill-defined soft tissue edema is seen in the popliteal fossa with small areas of fluid in the popliteal fossa which are ill-defined. There is fluid extending inferiorly along the superficial surface of the medial head of the gastrocnemius. The findings suggest a ruptured popliteal cyst. No suspicious enhancement is seen. There are multiple venous varicosities in the subcutaneous soft tissues primarily medially. IMPRESSION: Complex tears of both the medial and lateral menisci. The cruciate and collateral ligaments are intact. Moderate diffuse chondromalacia. Mild subchondral cystic change and edema in the peripheral medial tibial plateau. There is a fairly large joint effusion. There is diffuse edema in the popliteal fossa with small pockets of ill-defined fluid, and fluid extending inferiorly along the superficial surface of the medial head of the gastrocnemius muscle. The findings are most consistent with ruptured popliteal cyst. Signed by Daquan Camarillo MD 09/30/2016 01:47 P
[2016-09-30] MEDS ORDERED: LIDOCAINE 1% MDV 20ML VIAL As Ordered ONE (13:36)
[2016-09-30] MEDS ORDERED: LIDOCAINE 1% MDV 20ML VIAL SC ONE (13:45)
[2016-09-30 14:00] VITALS: BP 134/60
[2016-09-30 14:19] LABS: CRYSTALS, BODY FLUID URIC ACID (NONE SEEN)
--- NOTE | 2016-09-30 14:50 | IPNPDOC ---
Date Seen The patient was seen on 09/30/16. Progress Note SUBJECTIVE: Patient is comfortable, tells me her Rt leg pain is improving but pain is still significant. No other complaints at this time OBJECTIVE PHYSICAL EXAMINATION: VITAL SIGNS: Please see below. GENERAL: Pleasant elderly female laying in bed no distress HEENT: Pupils equally round reactive to light moist mucous membranes CARDIOVASCULAR: S1-S2 regular crescendo decrescendo systolic murmur. RESPIRATORY: Clear to auscultation. ABDOMINAL: Bowel sounds present abdomen soft nontender EXTREMITIES: Right lower extremity trace edema wrapped and elevated. NEUROLOGICAL: Nonfocal LABORATORY DATA: Please see below. MICROBIOLOGY: Please see below. IMAGING: Rt knee xray: There is no fracture. There is mild demineralization. The study is otherwise unremarkable. Rt Tib-Fib Xray: Mild demineralization, otherwise negative right tibia-fibula. LE Duplex: There is a Boone's cyst in the right popliteal fossa measuring 4.5 x 0.0 x 2.1 cm. 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 In the right lower extremity in the upper medial calf there is a complex linear fluid collection measuring 7.8 x 0.6 x 3.6 cm, possibly secondary to a muscle or tendon tear. MRI of the knee Complex tears of both the medial and lateral menisci. The cruciate and collateral ligaments are intact. Moderate diffuse chondromalacia. Mild subchondral cystic change and edema in the peripheral medial tibial plateau. There is a fairly large joint effusion. There is diffuse edema in the popliteal fossa with small pockets of ill-defined fluid, and fluid extending inferiorly along the superficial surface of the medial head of the gastrocnemius muscle. The findings are most consistent with ruptured popliteal cyst. MRI of the lower extremity Elongated thin fluid collection along the superficial surface of the medial head of the gastrocnemius muscle communicating with the popliteal fossa. Findings are most consistent with a ruptured popliteal cyst dissecting into the fascial plane along the superficial surface of the medial head of the gastrocnemius muscle. DVT prophylaxis ordered?: Lovenox ASSESSMENT AND PLAN: This is a 86-year-old Female with Rt knee/calf pain. PROBLEMS: (1) menisci tear Status: Acute Problem Text: Meniscus tear and popliteal cyst rupture with significant joint effusion and fluid collection in the calf. The patient is improved from previous days or she still has significant pain with difficult ambulation she is not safe for discharge as per PT at this time. I placed a consult to orthopedic surgery to evaluate the patient see if there is any intervention possible she may benefit from aspiration fluid removal to increase her range of motion and functional capabilities patient continues to work with PT. Continue with heat and pain meds (2) Rotaviral enteritis Status: Acute Problem Text: Resolved diarrhea resolved will continue to monitor (3) Leukopenia Status: Resolved Problem Text: likely secondary to gastroenteritis (4) Hypokalemia Status: Resolved Problem Text: potassium level normal today, continue with repletion and daily monitoring (5) Hyperthyroidism Status: Chronic Response to Treatment: Stable, c/w methimazole (6) HTN (hypertension) Status: Chronic Response to Treatment: Stable, c/w valsartan, hctz (7) Glaucoma Status: Chronic Response to Treatment: Stable c/w timolol DISPOSITION: f/u orthopedic surgery and the patient continue to work with physical therapy likely DC home versus subacute rehabilitation VS, I&O, 24H, Fishbone Vital Signs/I&O Vital Signs Date Time Temp Pulse Resp B/P (MAP) Pulse Ox O2 Delivery O2 Flow Rate FiO2 09/30/16 14:00 99.3 78 18 134/60 (84) 96 Room Air I&O- Last 24 Hours up to 6 AM 09/30/16 05:59 Intake Total 900 ml Output Total 1650 ml Balance -750 ml Laboratory Data 24H LABS Laboratory Tests 2 09/30/16 08:21: Anion Gap 5L, Glomerular Filtration Rate > 60.0, Blood Urea Nitrogen 7, Creatinine 0.62, Sodium Level 134#L, Potassium Level 4.0, Chloride Level 101, Carbon Dioxide Level 28, Calcium Level 8.5L 09/30/16 13:50: Body Fluid Crystals URIC ACIDH, Body Fluid Crystal Source RT KNEE CBC/BMP Laboratory Tests 09/30/16 08:21 Red Blood Count 4.28, Mean Corpuscular Volume 88.7, Mean Corpuscular Hemoglobin 31.1, Mean Corpuscular Hemoglobin Concent 35.1, Red Cell Distribution Width 13.2 , Calcium Level 8.5 L Microbiology Microbiology 09/26/16 Blood Culture - Preliminary, Resulted No Growth after 72 hours. All specime... 09/26/16 Blood Culture - Preliminary, Resulted No Growth after 72 hours. All specime... 09/30/16 Gram Stain, Received Pending 09/30/16 Body Fluid Culture, Received Pending 09/26/16 Urine Culture - Final, Complete Escherichia Coli DAKSHA RIZVI MD Sep 30, 2016 14:50
[2016-09-30 14:53] LABS: RBC ADVIA BF 0.01; RBC CALC. BF 10000 (< 10mm3 cells/uL); WBC CALC. BF 23000 cells/uL (0-20)
[2016-09-30 14:54] LABS: URIC ACID, BODY FLUID 3.8 MG/DL (NOT ESTABLISHED)
[2016-09-30 15:37] LABS: BF DIFF IF INDICATED? YES (NO); SYNOVIAL FLUID COLOR YELLOW (YELLOW)
[2016-09-30 15:46] LABS: CC BF DIFF EXAM CYTOCENTRIFUGE
--- NOTE | 2016-09-30 18:47 | CR ---
DATE OF CONSULTATION: 09/30/2016 REASON FOR CONSULTATION: Swollen right knee. HISTORY OF PRESENT ILLNESS: She is an 86-year-old female who was admitted for gastroenteritis, viral induced. She has been here for several days, then about 2 or 3 days ago developed insidious onset of some swelling of the right knee. Does not recall having any troubles with this right knee in the past. No known history of gout. Does not remember having any troubles, injuries, or troubles with this right knee in the past. Has not had any fever since she has been here, and her gastroenteritis symptoms and diarrhea are slowly improving. Radiographs and MRI scans have been ordered and completed, and I did have a chance to review. Her right knee plain film x-ray shows chondrocalcinosis and some mild arthritis. MRI scan shows appearance of some chronic degenerative meniscus tears medially and laterally with some popliteal fluid, possibly consistent with a ruptured popliteal cyst. No other worrisome findings are noted. Otherwise, she noticed quite a bit of discomfort and pain and soreness whenever she tries to step or walk on that right knee, and that is what is limiting her discharge from the hospital, so I was asked to see her for this. Otherwise, her past medical history is reviewed. She is actually known to me from the office. I care for her . She has a history of hypothyroidism, osteoporosis, colitis in the past, glaucoma, high blood pressure, and hypomagnesemia. Previous surgeries are appendectomy, colonoscopy. She is . Lives at home with her . She does not smoke or drink alcohol excessively. There is a history of Crohn's disease in one of her children. When I examine her, she is a very pleasant, elderly female, lying in her bed with a heating pad on her right knee. She is actually not markedly irritated or in severe pain at all, but her right knee on exam does indeed carry a fairly large effusion, slightly warm, but there has been a heating pad. It is not red. There is no erythema. No induration. General flexion and extension of the right knee does not cause marked irritability, but there is pain limiting her range of motion because of the size of the effusion. Distal neurovascular exam is unremarkable. Good pulses. Moves her toes well. Normal sensation. X-rays and MRI scan have been reviewed as above; otherwise, her vital signs have been stable. Her maximum temperature during her hospitalization was 99.5 yesterday. LABORATORY STUDIES: Showed, today's sodium was 134, potassium 4, chloride 101, bicarbonate 28, BUN 7 , creatinine 0.62, calcium 8.5. White count is normal at 6.5, hematocrit of 38, platelets of 185. Urinalysis unremarkable. IMPRESSION: This has appearance of having a reactive synovitis, possibly pseudogout. The other possibility, of course, is a viral infection given her recent gastroenteritis, or, again, it could be more of a reactive synovitis. I think to help us sort out the diagnosis, aspirating the fluid would also make her feel comfortable, but we could also send it to the lab for testing and possibly could be therapeutic and make her feel better, so we will like to proceed with that. She consented to that procedure. We plan to proceed, and we will see what the lab tests show. TODD
[2016-09-30 22:00] VITALS: BP 126/59
[2016-10-01 06:00] VITALS: BP 128/60
[2016-10-01 06:38] LABS: BASO % 0.4 % (0.0-1.0); EOS % 0.5 % (0.0-3.0); LARGE UNSTAINED CELL # 0.3 K/mm3 (0.0-0.4); LARGE UNSTAINED CELL % 3.4 % (0.0-4.0); LYMPH # 1.7 K/mm3 (1.5-4.5); LYMPH % 19.7 % (24.0-44.0); MEAN CORPUSCULAR HEMOGLOBIN 30.9 pg (27.0-33.0); MEAN CORPUSCULAR HGB CONC 34.4 g/dl (32.0-36.5); MEAN CORPUSCULAR VOLUME 89.9 fl (80.0-96.0); MONO # 0.7 K/mm3 (0.0-0.8); MONO % 9.7 % (0.0-5.0); NEUTROPHILS # 4.9 K/mm3 (1.8-7.7); NEUTROPHILS % 66.3 % (36.0-66.0); PLATELET COUNT, AUTOMATED 196 k/mm3 (150-450); RED CELL DISTRIBUTION WIDTH 13.2 % (11.5-14.5); WHITE BLOOD COUNT 7.3 K/mm3 (4.0-10.0)
[2016-10-01 06:58] LABS: ALBUMIN 2.7 GM/DL (3.2-5.2); ALBUMIN/GLOBULIN RATIO 0.66 (1.00-1.93); ALKALINE PHOSPHATASE 55 U/L (45-117); ALT/SGPT 28 U/L (12-78); ANION GAP 5 MEQ/L (8-16); AST/SGOT 16 U/L (15-37); BILIRUBIN,TOTAL 0.7 MG/DL (0.2-1.0); BLOOD UREA NITROGEN 9 MG/DL (7-18); CARBON DIOXIDE LEVEL 28 MEQ/L (21-32); CHLORIDE LEVEL 101 MEQ/L (98-107); CREATININE FOR GFR 0.65 MG/DL (0.55-1.02); GLOMERULAR FILTRATION RATE > 60.0 (>32); GLUCOSE, FASTING 98 MG/DL (83-110); SODIUM LEVEL 134 MEQ/L (136-145); TOTAL PROTEIN 6.8 GM/DL (6.4-8.2)
--- NOTE | 2016-10-01 09:45 | RO ---
DATE OF PROCEDURE: 09/30/2016 PREOPERATIVE DIAGNOSIS: Swollen right knee. POSTOPERATIVE DIAGNOSIS: Swollen right knee. PROCEDURE: Right knee aspiration. SURGEON: Samara Manning MD PROCESSING ANALYST: ANESTHESIA: Local. COMPLICATIONS: None. FINDINGS: Approximately 37 mL of somewhat watery yellow fluid was obtained with slight blood-tingeing, and it was sent to the laboratory in a green-top and a red-top tube for gram stain, culture and sensitivity, and joint fluid analysis. DESCRIPTION OF PROCEDURE: After consent had been obtained, the sterile prep was performed at the outside aspect of the right knee near the suprapatellar pouch. 1% lidocaine was infiltrated in the skin, and then, an 18-guage needle was used with a 25 mL syringe to aspirate about 37 mL of fluid in total from the right knee, and they were placed into sterilely-prepared green-top and red-top vacutainer tubes, and sent to the laboratory. She tolerated the procedure well. A band-aid was applied. There were no complications.
[2016-10-01] MEDS: VALSARTAN 80 MG TAB (DIOVAN) PO SCH (10:01)
[2016-10-01] MEDS: MAGNESIUM CHLORIDE 64 MG TABCR (SLO MAG) PO SCH (10:01)
[2016-10-01] MEDS: OCUVITE 1 TAB PO SCH (10:01)
[2016-10-01] MEDS: predniSONE 20 MG TAB PO SCH (10:01)
[2016-10-01] MEDS: MULTIVITAMINS/MINERALS THERAP 1 TAB PO SCH (10:02)
[2016-10-01] MEDS: hydroCHLOROthiazide 12.5 MG CAPSULE PO SCH (10:02)
[2016-10-01] MEDS: POTASSIUM CHLORIDE 10 MEQ SR TABLET PO SCH (10:02)
[2016-10-01] MEDS: TIMOLOL MALEATE 0.5% OPHTH SOLN 5 ML OU SCH ×2 (10:02→20:20)
[2016-10-01] MEDS: ENOXAPARIN 40 MG/0.4 ML SYRINGE (J1650) SC SCH (10:03)
[2016-10-01] MEDS: ACETAMINOPHEN TAB 650MG DOSE (2X325MG) PO PRN ×2 (11:20→20:21)
[2016-10-01 14:00] VITALS: BP 110/53
--- NOTE | 2016-10-01 15:06 | IPNPDOC ---
Date Seen The patient was seen on 10/01/16. Progress Note SUBJECTIVE: Patient is comfortable, tells me her Rt leg pain continues to improve but pain is still significant. No other complaints at this time OBJECTIVE PHYSICAL EXAMINATION: VITAL SIGNS: Please see below. GENERAL: Pleasant elderly female laying in bed no distress HEENT: Pupils equally round reactive to light moist mucous membranes CARDIOVASCULAR: S1-S2 regular crescendo decrescendo systolic murmur. RESPIRATORY: Clear to auscultation. ABDOMINAL: Bowel sounds present abdomen soft nontender EXTREMITIES: Right lower extremity trace edema wrapped and elevated. NEUROLOGICAL: Nonfocal LABORATORY DATA: Please see below. MICROBIOLOGY: Please see below. IMAGING: Rt knee xray: There is no fracture. There is mild demineralization. The study is otherwise unremarkable. Rt Tib-Fib Xray: Mild demineralization, otherwise negative right tibia-fibula. LE Duplex: There is a Boone's cyst in the right popliteal fossa measuring 4.5 x 0.0 x 2.1 cm. 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 In the right lower extremity in the upper medial calf there is a complex linear fluid collection measuring 7.8 x 0.6 x 3.6 cm, possibly secondary to a muscle or tendon tear. MRI of the knee Complex tears of both the medial and lateral menisci. The cruciate and collateral ligaments are intact. Moderate diffuse chondromalacia. Mild subchondral cystic change and edema in the peripheral medial tibial plateau. There is a fairly large joint effusion. There is diffuse edema in the popliteal fossa with small pockets of ill-defined fluid, and fluid extending inferiorly along the superficial surface of the medial head of the gastrocnemius muscle. The findings are most consistent with ruptured popliteal cyst. MRI of the lower extremity Elongated thin fluid collection along the superficial surface of the medial head of the gastrocnemius muscle communicating with the popliteal fossa. Findings are most consistent with a ruptured popliteal cyst dissecting into the fascial plane along the superficial surface of the medial head of the gastrocnemius muscle. DVT prophylaxis ordered?: Lovenox ASSESSMENT AND PLAN: This is a 86-year-old Female with Rt knee/calf pain. PROBLEMS: (1) menisci tear, right knee gout Status: Acute Problem Text: Meniscus tear and popliteal cyst rupture with significant joint effusion and fluid collection in the calf. The patient is improved from previous days or she still has significant pain with difficult ambulation she is not safe for discharge as per PT at this time. Orthopedic surgery's help is greatly appreciated the date Joint which is suggestive of gout the patient feels improvement after the knee At this time I will also start her on by mouth prednisone I'm optimistic that she should improve within the next 24-48 hours with these measures. Continue with heat and pain meds (2) Rotaviral enteritis Status: Acute Problem Text: Resolved diarrhea resolved will continue to monitor (3) Leukopenia Status: Resolved Problem Text: likely secondary to gastroenteritis (4) Hypokalemia Status: Resolved Problem Text: potassium level normal today, continue with repletion and daily monitoring (5) Hyperthyroidism Status: Chronic Response to Treatment: Stable, c/w methimazole (6) HTN (hypertension) Status: Chronic Response to Treatment: Stable, c/w valsartan, hctz (7) Glaucoma Status: Chronic Response to Treatment: Stable c/w timolol DISPOSITION: likely DC home versus subacute rehabilitation depending on the patient's progress VS, I&O, 24H, [facility] Vital Signs/I&O Vital Signs Date Time Temp Pulse Resp B/P (MAP) Pulse Ox O2 Delivery O2 Flow Rate FiO2 10/01/16 14:00 98.9 70 18 110/53 (72) 93 Room Air I&O- Last 24 Hours up to 6 AM 10/01/16 06:00 Intake Total 900 ml Output Total 1000 ml Balance -100 ml Laboratory Data 24H LABS Laboratory Tests 2 10/01/16 05:31: White Blood Count 7.3, Red Blood Count 4.09, Hemoglobin 12.6, Hematocrit 36.8, Mean Corpuscular Volume 89.9, Mean Corpuscular Hemoglobin 30.9, Mean Corpuscular Hemoglobin Concent 34.4, Red Cell Distribution Width 13.2, Platelet Count 196, Neutrophils (%) (Auto) 66.3H, Lymphocytes (%) (Auto) 19.7L, Monocytes (%) (Auto) 9.7H, Eosinophils (%) (Auto) 0.5, Basophils (%) (Auto) 0.4 , Neutrophils # (Auto) 4.9, Lymphocytes # (Auto) 1.7, Monocytes # (Auto) 0.7, Eosinophils # (Auto) 0.0, Basophils # (Auto) 0.0, Large Unclassified Cells % 3.4 , Large Unclassified Cells # 0.3, Anion Gap 5L, Glomerular Filtration Rate > 60.0, Blood Urea Nitrogen 9, Creatinine 0.65, Sodium Level 134L, Potassium Level 4.0, Chloride Level 101, Carbon Dioxide Level 28, Calcium Level 9.0, Aspartate Amino Transf (AST/SGOT) 16, Alanine Aminotransferase (ALT/SGPT) 28, Alkaline Phosphatase 55, Total Bilirubin 0.7, Total Protein 6.8, Albumin 2.7L, Albumin/Globulin Ratio 0.66L CBC/BMP Laboratory Tests 10/01/16 05:31 Red Blood Count 4.09, Mean Corpuscular Volume 89.9, Mean Corpuscular Hemoglobin 30.9, Mean Corpuscular Hemoglobin Concent 34.4, Red Cell Distribution Width 13.2 , Neutrophils (%) (Auto) 66.3 H, Lymphocytes (%) (Auto) 19.7 L, Monocytes (%) ( Auto) 9.7 H, Eosinophils (%) (Auto) 0.5, Basophils (%) (Auto) 0.4, Neutrophils # (Auto) 4.9, Lymphocytes # (Auto) 1.7, Monocytes # (Auto) 0.7, Eosinophils # ( Auto) 0.0, Basophils # (Auto) 0.0, Calcium Level 9.0, Aspartate Amino Transf ( AST/SGOT) 16, Alanine Aminotransferase (ALT/SGPT) 28, Alkaline Phosphatase 55, Total Bilirubin 0.7, Total Protein 6.8, Albumin 2.7 L Microbiology Microbiology 09/26/16 Blood Culture - Preliminary, Resulted No Growth after 72 hours. All specime... 09/26/16 Blood Culture - Preliminary, Resulted No Growth after 72 hours. All specime... 09/30/16 Gram Stain - Final, Resulted 09/30/16 Body Fluid Culture, Resulted Pending 09/26/16 Urine Culture - Final, Complete Escherichia Coli DAKSHA RIZVI MD Oct 01, 2016 15:05
[2016-10-01 20:20] VITALS: BP 130/60
[2016-10-02 06:10] LABS: BASO % 0.2 % (0.0-1.0); EOS % 0.2 % (0.0-3.0); LARGE UNSTAINED CELL # 0.4 K/mm3 (0.0-0.4); LARGE UNSTAINED CELL % 4.6 % (0.0-4.0); LYMPH # 1.6 K/mm3 (1.5-4.5); LYMPH % 20.4 % (24.0-44.0); MEAN CORPUSCULAR HEMOGLOBIN 30.5 pg (27.0-33.0); MEAN CORPUSCULAR HGB CONC 34.2 g/dl (32.0-36.5); MEAN CORPUSCULAR VOLUME 89.1 fl (80.0-96.0); MONO # 0.5 K/mm3 (0.0-0.8); MONO % 6.7 % (0.0-5.0); NEUTROPHILS # 5.4 K/mm3 (1.8-7.7); NEUTROPHILS % 67.9 % (36.0-66.0); PLATELET COUNT, AUTOMATED 240 k/mm3 (150-450); RED CELL DISTRIBUTION WIDTH 12.8 % (11.5-14.5); WHITE BLOOD COUNT 7.9 K/mm3 (4.0-10.0)
[2016-10-02 06:27] LABS: ALBUMIN 2.6 GM/DL (3.2-5.2); ALBUMIN/GLOBULIN RATIO 0.63 (1.00-1.93); ALKALINE PHOSPHATASE 54 U/L (45-117); ALT/SGPT 24 U/L (12-78); ANION GAP 8 MEQ/L (8-16); AST/SGOT 10 U/L (15-37); BILIRUBIN,TOTAL 0.6 MG/DL (0.2-1.0); BLOOD UREA NITROGEN 16 MG/DL (7-18); CARBON DIOXIDE LEVEL 26 MEQ/L (21-32); CHLORIDE LEVEL 103 MEQ/L (98-107); CREATININE FOR GFR 0.62 MG/DL (0.55-1.02); GLOMERULAR FILTRATION RATE > 60.0 (>32); GLUCOSE, FASTING 101 MG/DL (83-110); SODIUM LEVEL 137 MEQ/L (136-145); TOTAL PROTEIN 6.7 GM/DL (6.4-8.2)
[2016-10-02 06:40] VITALS: BP 130/60
[2016-10-02] MEDS: TIMOLOL MALEATE 0.5% OPHTH SOLN 5 ML OU SCH ×2 (09:17→21:07)
[2016-10-02] MEDS: MAGNESIUM CHLORIDE 64 MG TABCR (SLO MAG) PO SCH (09:18)
[2016-10-02] MEDS: ENOXAPARIN 40 MG/0.4 ML SYRINGE (J1650) SC SCH (09:18)
[2016-10-02] MEDS: POTASSIUM CHLORIDE 10 MEQ SR TABLET PO SCH (09:18)
[2016-10-02] MEDS: hydroCHLOROthiazide 12.5 MG CAPSULE PO SCH (09:19)
[2016-10-02] MEDS: OCUVITE 1 TAB PO SCH (09:19)
[2016-10-02] MEDS: predniSONE 20 MG TAB PO SCH (09:19)
[2016-10-02] MEDS: MULTIVITAMINS/MINERALS THERAP 1 TAB PO SCH (09:19)
[2016-10-02] MEDS: VALSARTAN 80 MG TAB (DIOVAN) PO SCH (09:19)
[2016-10-02] MEDS: ACETAMINOPHEN TAB 650MG DOSE (2X325MG) PO PRN ×2 (09:20→21:08)
--- NOTE | 2016-10-02 13:41 | IPNPDOC ---
Date Seen The patient was seen on 10/02/16. Progress Note SUBJECTIVE: Patient is comfortable, tells me her Rt leg pain continues to improve no complaints at this time OBJECTIVE PHYSICAL EXAMINATION: VITAL SIGNS: Please see below. GENERAL: Pleasant elderly female laying in bed no distress HEENT: Pupils equally round reactive to light moist mucous membranes CARDIOVASCULAR: S1-S2 regular crescendo decrescendo systolic murmur. RESPIRATORY: Clear to auscultation. ABDOMINAL: Bowel sounds present abdomen soft nontender EXTREMITIES: Right lower extremity no edema wrapped and elevated. Increased ROM today NEUROLOGICAL: Nonfocal LABORATORY DATA: Please see below. MICROBIOLOGY: Please see below. IMAGING: Rt knee xray: There is no fracture. There is mild demineralization. The study is otherwise unremarkable. Rt Tib-Fib Xray: Mild demineralization, otherwise negative right tibia-fibula. LE Duplex: There is a Boone's cyst in the right popliteal fossa measuring 4.5 x 0.0 x 2.1 cm. 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 In the right lower extremity in the upper medial calf there is a complex linear fluid collection measuring 7.8 x 0.6 x 3.6 cm, possibly secondary to a muscle or tendon tear. MRI of the knee Complex tears of both the medial and lateral menisci. The cruciate and collateral ligaments are intact. Moderate diffuse chondromalacia. Mild subchondral cystic change and edema in the peripheral medial tibial plateau. There is a fairly large joint effusion. There is diffuse edema in the popliteal fossa with small pockets of ill-defined fluid, and fluid extending inferiorly along the superficial surface of the medial head of the gastrocnemius muscle. The findings are most consistent with ruptured popliteal cyst. MRI of the lower extremity Elongated thin fluid collection along the superficial surface of the medial head of the gastrocnemius muscle communicating with the popliteal fossa. Findings are most consistent with a ruptured popliteal cyst dissecting into the fascial plane along the superficial surface of the medial head of the gastrocnemius muscle. DVT prophylaxis ordered?: Lovenox ASSESSMENT AND PLAN: This is a 86-year-old Female with Rt knee/calf pain. PROBLEMS: (1) menisci tear, right knee gout Status: Acute Problem Text: Meniscus tear and popliteal cyst rupture with significant joint effusion and fluid collection in the calf. The patient continue slow improvement I suspect she may be able to be discharged tomorrow pending PT clearance. Orthopedic surgery's help is greatly appreciated the Joint aspiration which is suggestive of gout the patient feels improvement after the knee tap. (2) Rotaviral enteritis Status: Acute Problem Text: Resolved diarrhea resolved will continue to monitor (3) Leukopenia Status: Resolved Problem Text: likely secondary to gastroenteritis (4) Hypokalemia Status: Resolved Problem Text: potassium level normal today, continue with repletion and daily monitoring (5) Hyperthyroidism Status: Chronic Response to Treatment: Stable, c/w methimazole (6) HTN (hypertension) Status: Chronic Response to Treatment: Stable, c/w valsartan, hctz (7) Glaucoma Status: Chronic Response to Treatment: Stable c/w timolol DISPOSITION: likely DC home versus subacute rehabilitation depending on the patient's progress and response to prednisone VS, I&O, 24H, [facility] Vital Signs/I&O Vital Signs Date Time Temp Pulse Resp B/P (MAP) Pulse Ox O2 Delivery O2 Flow Rate FiO2 10/02/16 09:19 130/60 10/02/16 06:40 98.6 66 17 95 Room Air I&O- Last 24 Hours up to 6 AM 10/02/16 06:00 Intake Total 1280 ml Output Total 1300 ml Balance -20 ml Laboratory Data 24H LABS Laboratory Tests 2 10/02/16 05:27: White Blood Count 7.9, Red Blood Count 3.91L, Hemoglobin 11.9L, Hematocrit 34.9L , Mean Corpuscular Volume 89.1, Mean Corpuscular Hemoglobin 30.5, Mean Corpuscular Hemoglobin Concent 34.2, Red Cell Distribution Width 12.8, Platelet Count 240, Neutrophils (%) (Auto) 67.9H, Lymphocytes (%) (Auto) 20.4L, Monocytes (%) (Auto) 6.7H, Eosinophils (%) (Auto) 0.2, Basophils (%) (Auto) 0.2 , Neutrophils # (Auto) 5.4, Lymphocytes # (Auto) 1.6, Monocytes # (Auto) 0.5, Eosinophils # (Auto) 0.0, Basophils # (Auto) 0.0, Large Unclassified Cells % 4.6H, Large Unclassified Cells # 0.4, Anion Gap 8, Glomerular Filtration Rate > 60.0, Blood Urea Nitrogen 16#, Creatinine 0.62, Sodium Level 137, Potassium Level 4.0, Chloride Level 103, Carbon Dioxide Level 26, Calcium Level 9.0, Aspartate Amino Transf (AST/SGOT) 10L, Alanine Aminotransferase (ALT/SGPT) 24, Alkaline Phosphatase 54, Total Bilirubin 0.6, Total Protein 6.7, Albumin 2.6L, Albumin/Globulin Ratio 0.63L CBC/BMP Laboratory Tests 10/02/16 05:27 Red Blood Count 3.91 L, Mean Corpuscular Volume 89.1, Mean Corpuscular Hemoglobin 30.5, Mean Corpuscular Hemoglobin Concent 34.2, Red Cell Distribution Width 12.8, Neutrophils (%) (Auto) 67.9 H, Lymphocytes (%) (Auto) 20.4 L, Monocytes (%) (Auto) 6.7 H, Eosinophils (%) (Auto) 0.2, Basophils (%) ( Auto) 0.2, Neutrophils # (Auto) 5.4, Lymphocytes # (Auto) 1.6, Monocytes # (Auto ) 0.5, Eosinophils # (Auto) 0.0, Basophils # (Auto) 0.0, Calcium Level 9.0, Aspartate Amino Transf (AST/SGOT) 10 L, Alanine Aminotransferase (ALT/SGPT) 24, Alkaline Phosphatase 54, Total Bilirubin 0.6, Total Protein 6.7, Albumin 2.6 L Microbiology Microbiology 09/26/16 Blood Culture - Final, Complete NO GROWTH AFTER 5 DAYS 09/26/16 Blood Culture - Final, Complete NO GROWTH AFTER 5 DAYS 09/30/16 Gram Stain - Final, Complete 09/30/16 Body Fluid Culture - Final, Complete 09/26/16 Urine Culture - Final, Complete Escherichia Coli DAKSHA RIZVI MD Oct 02, 2016 13:41
[2016-10-02 14:00] VITALS: BP 121/60
[2016-10-02 20:50] VITALS: BP 141/64
[2016-10-03 05:15] VITALS: BP 131/60
[2016-10-03] MEDS: ENOXAPARIN 40 MG/0.4 ML SYRINGE (J1650) SC SCH ×2 (09:00→10:14)
[2016-10-03] MEDS ORDERED: PRED20TA PO (09:39)
[2016-10-03] MEDS: MAGNESIUM CHLORIDE 64 MG TABCR (SLO MAG) PO SCH (10:14)
[2016-10-03] MEDS: predniSONE 20 MG TAB PO SCH (10:15)
[2016-10-03] MEDS: MULTIVITAMINS/MINERALS THERAP 1 TAB PO SCH (10:15)
[2016-10-03] MEDS: OCUVITE 1 TAB PO SCH (10:15)
[2016-10-03 10:16] VITALS: BP 131/60
[2016-10-03] MEDS: POTASSIUM CHLORIDE 10 MEQ SR TABLET PO SCH (10:16)
[2016-10-03] MEDS: hydroCHLOROthiazide 12.5 MG CAPSULE PO SCH (10:16)
[2016-10-03] MEDS: VALSARTAN 80 MG TAB (DIOVAN) PO SCH (10:16)
[2016-10-03] MEDS: TIMOLOL MALEATE 0.5% OPHTH SOLN 5 ML OU SCH (10:17)
--- NOTE | 2016-10-04 12:35 | DSES ---
DATE OF ADMISSION: 09/26/2016 DATE OF DISCHARGE: 10/03/2016 DISCHARGE DIAGNOSIS: Right knee meniscal tear. SECONDARY DIAGNOSES: 1. Right knee gout. 2. Popliteal cyst rupture. 3. Rotaviral enteritis. 4. Hypokalemia. 5. Hyperthyroidism. 6. Hypertension. 7. Glaucoma. 8. Leukopenia. CONSULTATIONS: Dr. Lew Manning, orthopedic surgery. PROCEDURES: Right knee joint tap on 09/30/2016. HOSPITAL COURSE: The patient is an 86-year-old female who presented on September 26 with diarrhea. She had persistent diarrhea after being recently diagnosed with a rotavirus infection on 09/24/2016. Patient was started with intravenous (IV) fluids and Imodium. Her symptoms did resolve; however, she began to develop significant right knee pain. An MRI was completed. It revealed joint effusion, meniscal tear, fluid in her calf, concerning for rupture of popliteal cyst. She was seen by orthopedic surgery, who did do a joint aspiration, which revealed uric acid crystals. She had significantly reduced mobility secondary to pain. She was started on prednisone 20 mg by mouth daily and after 48 hours did have good improvement in her symptoms. At this time the patient has been cleared by physical therapy, and she is medically stable for discharge home. SUBJECTIVE: Today the patient reports she is glad she is feeling so much better. She has no complaints at this time. OBJECTIVE: VITAL SIGNS: Temperature 98.2, pulse 61, respiratory rate 17, blood pressure (BP) 131/60, oxygen saturation 95% on room air. GENERAL: She is a very pleasant well-groomed elderly female, lying in bed. She is no acute distress. HEENT: Cranial nerves II-XII are grossly intact. She has moist mucous membranes. No elevation in central venous pressure. CARDIOVASCULAR: S1, S2, regular. RESPIRATORY: Clear. ABDOMEN: Benign. EXTREMITIES: Her right lower extremity has decreased swelling, increased range of motion. No tenderness to palpation. LABORATORY STUDIES: WBC 7.9, hemoglobin 11.9, platelet count 240. Chemistry panel: Sodium 137, potassium 4.0, chloride 103, bicarbonate 26, BUN 16, creatinine 0.6. Her right knee joint tap revealed 23,000 WBC and uric acid. Microbiology: She had a urine culture positive for Escherichia (E) coli without symptoms. Synovial fluid culture was negative. IMAGING: The patient did have an MRI of her right knee, which revealed complex tears of both medial and lateral menisci, moderate diffuse chondromalacia, fairly large joint effusion, diffuse edema at the popliteal fossa with small pockets of ill-defined fluid and fluid extending inferiorly along the superficial surface of the head of the gastrocnemius muscle, consistent with a ruptured popliteal cyst. Patient had an x-ray of the knee, which revealed mild demineralization. She also had an MRI of the right lower extremity, which, once again, revealed elongated fluid collection along the superficial surface of the medial head of the gastrocnemius muscle communicating with the popliteal fossa. She had a duplex ultrasound of the right lower extremity that also revealed Boone's cyst, and, once again, the fluid collection. ASSESSMENT AND PLAN: This is an 86-year-old female with meniscal tear and gout of the right knee. 1. Meniscal tear and gout of the right knee. The patient has been working with physical therapy, and she is improving on by mouth prednisone. She has relief after tap of her joint. Orthopedic surgery's help is greatly appreciated. She has been cleared by physical therapy, and, as such, she is medically stable for discharge home. She is to followup with orthopedic surgery as needed, followup with her primary care physician (PCP) within 7 days. 2. Diarrhea. She has resolved rotaviral enteritis. 3. Leukopenia. Likely secondary to gastroenteritis, resolved. 4. Hypokalemia. This is likely secondary to diarrhea, resolved. 5. Hyperthyroidism. Continue with methimazole. 6. Hypertension. Continue with losartan and hydrochlorothiazide combination. 7. Glaucoma. Continue with timolol. DISPOSITION: The patient is being discharged home with services. She is to followup with her PCP within 7 days and orthopedics as needed. Her activity is as tolerated. Her diet is as prior to admission. She is to return to the ER if her symptoms worsen. MEDICATIONS AT THE TIME OF DISCHARGE: - prednisone 20 mg daily for 6 days - Tylenol 650 mg every 6 hours as needed for pain - cranberry tablet 400 mg twice a day, as per the patient - loperamide 4 mg every 6 hours as needed for diarrhea - magnesium chloride 64 mg daily - mesalamine 1.2 grams by mouth three times a week, Thursday, Thursday, Thursday - methimazole 5 mg five times a week, Thursday, Thursday, , Thursday, Thursday - multivitamin one capsule daily - Osteo Bi-Flex Joint Shield one tablet daily, as per the patient - timolol 0.5% solution one drop each eye twice a day - losartan/hydrochlorothiazide combination pill 160/12.5 mg daily - Viactiv 500/500/40 two tablets daily as per the patient Greater than 30 minutes spent organization disposition.
[2016-10-05 07:44] LABS: HCT SOURCE RT KNEE
== END 2016-10-03 12:27 | disposition home health service (06) | DRG 392 ==
LOC: EDBD 10:08 → M ED 11:44 → M ED INP 15:21 → M MSPAV 17:00
PROVIDERS: ADMIT Internal Medicine; ATTEND Internal Medicine
PROC: 0S9C3ZZ Drainage of Right Knee Joint, Percutaneous Approach (ICD-10-PCS; principal; 2016-09-30)
DX: A08.0 Rotaviral enteritis (principal); M1A.9XX0 Chronic gout, unspecified, without tophus (tophi); I10 Essential (primary) hypertension; E87.6 Hypokalemia; H40.9 Unspecified glaucoma; M66.0 Rupture of popliteal cyst; E05.90 Thyrotoxicosis, unspecified without thyrotoxic crisis or storm; Z79.899 Other long term (current) drug therapy; E83.42 Hypomagnesemia; M23.002 Cystic meniscus, unspecified lateral meniscus, unspecified knee; M00-M99 Diseases of the musculoskeletal system and connective tissue

== ENCOUNTER → 2016-11-06 | Outpatient (CLI) | payer MEDICARE, BC ==
[~2016-11-06] MED LIST changes: +CALC600T57 PO; +CRAN400T3 PO; +LOPE2TAB3 PO; +MAGN64TASA PO; +OCUVCAP5 PO; +OSTETAB7 PO; +PRED20TA PO; +TAPA5TAB PO; +TIMO0.5S29 OU; -TIMO5OPD OU; +VALS160T PO; +VIAC8.5C PO; +VITMTA PO
--- NOTE | 2016-11-06 14:46 | REPMRS ---
Patient History The patient states she had a clinical breast exam in 11/03 Patient is postmenopausal. Family history of breast cancer in maternal cousin at age 50 or over. Benign FNA biopsy of the right breast, 1980. Benign FNA biopsy of the right breast, 1979. Digital Woman Screen Mammo: November 06, 2016 - Exam #: [id number] Bilateral CC and MLO view(s) were taken. Technologist: Emily Gilliland, Technologist Prior study comparison: November 01, 2015, digital woman screen mammo performed at [facility] [place] [facility]. September 27, 2014, digital woman screen mammo performed at [facility]. September 19, 2013, digital woman screen mammo performed at [facility] [place] [facility]. FINDINGS: The breast tissue is heterogeneously dense. This may lower the sensitivity of mammography. There is a moderate amount of heterogeneously dense fibroglandular tissue which is fairly symmetric. There is no interval development of dominant mass, architectural distortion, or clustered microcalcification typical of malignancy. There has been no change in the appearance of the mammogram from the prior studies. ASSESSMENT: BI-RADS/ACR category 1 mammogram. Negative. Recommendation Routine screening mammogram of both breasts in 1 year (for women over age 40). This mammogram was interpreted with the aid of an FDA-approved computer-aided dectection system. Electronically Signed By: Felipe Huerta MD 11/06/16 [id number]
== END ==
LOC: EDBD → M WHC 13:57
PROVIDERS: ATTEND Obstetrics & Gynecology
DX: Z12.31 Encounter for screening mammogram for malignant neoplasm of breast (principal)

== ENCOUNTER → 2017-01-12 | Outpatient (CLI) | payer MEDICARE, BC | LOC: M WUC 16:49 | PROVIDERS: ATTEND Physician Assistant Medical | DX: M81.0 Age-related osteoporosis without current pathological fracture (principal) ==

== ENCOUNTER → 2017-01-15 | Outpatient (REF) | payer MEDICARE, BC | LOC: M LAB REF 18:36 | PROVIDERS: ATTEND Nurse Practitioner Adult Health | DX: M10.061 Idiopathic gout, right knee (principal) ==

== ENCOUNTER → 2017-12-01 | Outpatient (CLI) | payer MEDICARE, BC | LOC: M WHC 10:01 | DX: Z12.31 Encounter for screening mammogram for malignant neoplasm of breast (principal); N60.31 Fibrosclerosis of right breast; N60.32 Fibrosclerosis of left breast | CPT/HCPCS: 77067 ==

== ENCOUNTER 2017-12-25 19:27 | Emergency (ER) | payer MEDICARE, BC ==
[2017-12-25 22:01] LABS: HEMATOCRIT 38.5 % (36.0-47.0); HEMOGLOBIN 13.4 g/dl (12.0-15.5); MEAN CORPUSCULAR HEMOGLOBIN 30.5 pg (27.0-33.0); MEAN CORPUSCULAR HGB CONC 34.8 g/dl (32.0-36.5); MEAN CORPUSCULAR VOLUME 87.5 fl (80.0-96.0); PLATELET COUNT, AUTOMATED 170 10^3/uL (150-450); RED CELL DISTRIBUTION WIDTH 13.6 % (11.5-14.5); WHITE BLOOD COUNT 7.2 10^3/uL (4.0-10.0)
[2017-12-25 22:26] LABS: ALBUMIN 3.6 GM/DL (3.2-5.2); ALBUMIN/GLOBULIN RATIO 1.16 (1.00-1.93); ALKALINE PHOSPHATASE 63 U/L (45-117); ALT/SGPT 19 U/L (12-78); ANION GAP 9 MEQ/L (8-16); AST/SGOT 15 U/L (7-37); BILIRUBIN,DIRECT 0.2 MG/DL (0.0-0.2); BILIRUBIN,TOTAL 0.5 MG/DL (0.2-1.0); BLOOD UREA NITROGEN 14 MG/DL (7-18); CALCIUM LEVEL 9.7 MG/DL (8.8-10.2); CARBON DIOXIDE LEVEL 27 MEQ/L (21-32); CHLORIDE LEVEL 108 MEQ/L (98-107); CK-MB VALUE MASS 3.4 NG/ML (<3.6); CPK CREATINE PHOSPHOKINASE 144 U/L (26-192); CREATININE FOR GFR 0.82 MG/DL (0.55-1.30); GLOMERULAR FILTRATION RATE > 60.0 (>32); GLUCOSE, FASTING 102 MG/DL (70-100); MB/CK RELATIVE INDEX 2.36 (< OR =4); POTASSIUM SERUM 3.8 MEQ/L (3.5-5.1); SODIUM LEVEL 144 MEQ/L (136-145); TOTAL PROTEIN 6.7 GM/DL (6.4-8.2); TROPONIN I < 0.02 NG/ML (< 0.10)
== END 2017-12-25 22:58 | disposition home or self-care (01) ==
LOC: M ED 19:27
DX: I10 Essential (primary) hypertension (principal); L03.114 Cellulitis of left upper limb; Z79.899 Other long term (current) drug therapy; Z79.2 Long term (current) use of antibiotics
CPT/HCPCS: 82550

== ENCOUNTER 2018-01-13 17:06 | Inpatient (IN) | payer MEDICARE, BC ==
[2018-01-13 18:55] LABS: BASO % 0.5 % (0.0-1.0); EOS # 0.1 10^3/uL (0.0-0.50); EOS % 2.1 % (0.0-3.0); HEMATOCRIT 41.3 % (36.0-47.0); IMMATURE GRANULOCYTE % 0.5 % (0-3.0); LYMPH # 1.7 10^3/uL (1.5-4.5); LYMPH % 27.3 % (24.0-44.0); MEAN CORPUSCULAR HGB CONC 33.9 g/dl (32.0-36.5); MEAN CORPUSCULAR VOLUME 88.6 fl (80.0-96.0); MONO # 0.5 10^3/uL (0.0-0.8); MONO % 8.8 % (0.0-5.0); NEUTROPHILS # 3.7 10^3/uL (1.8-7.7); NEUTROPHILS % 60.8 % (36.0-66.0); PLATELET COUNT, AUTOMATED 199 10^3/uL (150-450); RED BLOOD COUNT 4.66 10^6/uL (4.00-5.40); RED CELL DISTRIBUTION WIDTH 13.2 % (11.5-14.5); WHITE BLOOD COUNT 6.2 10^3/uL (4.0-10.0)
[2018-01-13 19:00] LABS: KETONE, URINE AUTO RFX NEGATIVE (NEGATIVE); NITRITE, URINE AUTO RFX NEGATIVE (NEGATIVE); RBC, URINE AUTO RFX 6 /HPF (0-3); SPECIFIC GRAVITY UR AUTO RFX 1.004 (1.002-1.035); SQUAM EPITHELIAL CELL UR AURFX 0 /HPF (0-6); WBC, URINE AUTO RFX 3 /HPF (0-3)
[2018-01-13] MEDS: hydrALAZINE INJ 20 MG/ML VIAL IV ×2 (19:16→23:18)
[2018-01-13 19:34] LABS: LEUKOCYTE ESTERASE UR AUTO RFX TRACE (NEGATIVE)
[2018-01-13 19:54] LABS: ALBUMIN 3.8 GM/DL (3.2-5.2); ALBUMIN/GLOBULIN RATIO 1.12 (1.00-1.93); ALKALINE PHOSPHATASE 63 U/L (45-117); ALT/SGPT 20 U/L (12-78); ANION GAP 9 MEQ/L (8-16); AST/SGOT 18 U/L (7-37); BILIRUBIN,DIRECT 0.2 MG/DL (0.0-0.2); BILIRUBIN,TOTAL 0.5 MG/DL (0.2-1.0); BLOOD UREA NITROGEN 17 MG/DL (7-18); CALCIUM LEVEL 9.4 MG/DL (8.8-10.2); CARBON DIOXIDE LEVEL 26 MEQ/L (21-32); CHLORIDE LEVEL 106 MEQ/L (98-107); CPK CREATINE PHOSPHOKINASE 189 U/L (26-192); CREATININE FOR GFR 0.76 MG/DL (0.55-1.30); GLOMERULAR FILTRATION RATE > 60.0 (>32); GLUCOSE, FASTING 96 MG/DL (70-100); MB/CK RELATIVE INDEX 2.33 (< OR =4); POTASSIUM SERUM 3.9 MEQ/L (3.5-5.1); SODIUM LEVEL 141 MEQ/L (136-145); THYROID STIMULATING HORMONE 0.988 uIU/ML (0.358-3.740); TOTAL PROTEIN 7.2 GM/DL (6.4-8.2); TROPONIN I < 0.02 NG/ML (< 0.10)
[2018-01-13] MEDS: FLUORESCEIN OPHTH 1 MG STRIP OD (20:22)
[2018-01-13] MEDS: TETRACAINE 0.5% OPHTH SOLN 4ML OU (20:22)
[2018-01-13] MEDS ORDERED: ISOVUE-370 76% 100ML VIAL (Q9967) As Ordered (22:28)
[2018-01-14] MEDS: CIPROFLOXACIN 0.3% OPHTH SOLN 2.5ML OD (00:15)
[2018-01-14] MEDS: NS 500 ML IV (00:27)
[2018-01-14] MEDS ORDERED: METAL LOCK LOOP XX (01:47)
[2018-01-14] MEDS: IRBESARTAN 150 MG TAB PO (08:54)
[2018-01-14] MEDS: hydroCHLOROthiazide 12.5 MG CAPSULE PO (08:55)
[2018-01-14] MEDS: MAGNESIUM CHLORIDE 64 MG TABCR (SLO MAG) PO (08:55)
[2018-01-14] MEDS: ENOXAPARIN 40 MG/0.4 ML SYRINGE (J1650) SC (08:55)
[2018-01-14] MEDS: TIMOLOL MALEATE 0.5% OPHTH SOLN 5 ML OU (08:55)
== END 2018-01-14 13:30 | disposition home or self-care (01) | DRG 305 ==
LOC: M ED INP 01-14 02:51 → M PCU 01-14 03:57 → M ED 17:06
DX: I16.0 Hypertensive urgency (principal); E03.9 Hypothyroidism, unspecified; E83.42 Hypomagnesemia; M81.0 Age-related osteoporosis without current pathological fracture; H40.9 Unspecified glaucoma; Z79.899 Other long term (current) drug therapy; K57.30 Diverticulosis of large intestine without perforation or abscess without bleeding

== ENCOUNTER 2018-03-17 09:39 | Emergency (ER) | payer MEDICARE, BC ==
[2018-03-17 11:05] LABS: BASO % 0.5 % (0.0-1.0); EOS # 0.2 10^3/uL (0.0-0.50); EOS % 2.8 % (0.0-3.0); HEMATOCRIT 39.3 % (36.0-47.0); HEMOGLOBIN 13.5 g/dl (12.0-15.5); IMMATURE GRANULOCYTE % 0.2 % (0-3.0); LYMPH # 1.4 10^3/uL (1.5-4.5); LYMPH % 23.3 % (24.0-44.0); MEAN CORPUSCULAR HEMOGLOBIN 30.2 pg (27.0-33.0); MEAN CORPUSCULAR HGB CONC 34.4 g/dl (32.0-36.5); MEAN CORPUSCULAR VOLUME 87.9 fl (80.0-96.0); MONO # 0.6 10^3/uL (0.0-0.8); MONO % 9.4 % (0.0-5.0); NEUTROPHILS # 3.9 10^3/uL (1.8-7.7); NEUTROPHILS % 63.8 % (36.0-66.0); PLATELET COUNT, AUTOMATED 188 10^3/uL (150-450); RED BLOOD COUNT 4.47 10^6/uL (4.00-5.40); RED CELL DISTRIBUTION WIDTH 13.7 % (11.5-14.5); WHITE BLOOD COUNT 6.1 10^3/uL (4.0-10.0)
[2018-03-17 11:44] LABS: ANION GAP 7 MEQ/L (8-16); BLOOD UREA NITROGEN 19 MG/DL (7-18); CALCIUM LEVEL 9.5 MG/DL (8.8-10.2); CARBON DIOXIDE LEVEL 29 MEQ/L (21-32); CHLORIDE LEVEL 106 MEQ/L (98-107); CREATININE FOR GFR 0.84 MG/DL (0.55-1.30); FREE T4 0.85 NG/DL (0.76-1.46); GLOMERULAR FILTRATION RATE > 60.0 (>32); GLUCOSE, FASTING 100 MG/DL (70-100); POTASSIUM SERUM 4.5 MEQ/L (3.5-5.1); SODIUM LEVEL 142 MEQ/L (136-145)
== END 2018-03-17 14:01 | disposition home or self-care (01) ==
LOC: M ED 09:39
DX: I10 Essential (primary) hypertension (principal); Z79.899 Other long term (current) drug therapy
CPT/HCPCS: 84443

== ENCOUNTER → 2018-04-27 | Outpatient (REF) | payer MEDICARE, BC ==
[~2018-04-27] MED LIST changes: +ACET-683 PO; +AMLO5TAB6 PO; +AVAP150T31 PO; +CALTCHW4 PO; +CALTCHW5 PO; +CENTCHW3 PO; +CEPH500C; +CILO0.3S OD; +CRAN1CHW PO; +FLORCAP6 PO; +HYDR12.55 PO; +INDA125TA PO; +IRBE300T10; +OCUV1CHW PO; +PROL60SO SC; +SPIR-10 PO; +TYLETAB14 PO; +ULTR50TA8 PO; +ZOFR4TAB14 PO; -ZOFR4TAB3 PO; +[UNRECOGNIZED DRUG - CODE] XX
== END ==
LOC: M LAB REF 17:22
PROVIDERS: ATTEND Internal Medicine
DX: I10 Essential (primary) hypertension (principal)

== ENCOUNTER 2018-05-03 11:32 | Emergency (ER) | payer MEDICARE, BC ==
[~2018-05-03] VITALS: Ht 154.9 cm; Wt 68.2 kg
[~2018-05-03 11:32] MED LIST changes: -AMLO5TAB6 PO; -INDA125TA PO; -TYLETAB14 PO; -ULTR50TA8 PO; -[UNRECOGNIZED DRUG - CODE] XX
[2018-05-03 13:24] LABS: BASO % 0.2 % (0.0-1.0); EOS # 0.1 10^3/uL (0.0-0.50); HEMATOCRIT 36.5 % (36.0-47.0); HEMOGLOBIN 12.7 g/dl (12.0-15.5); LYMPH # 1.3 10^3/uL (1.5-4.5); LYMPH % 12.7 % (24.0-44.0); MEAN CORPUSCULAR HEMOGLOBIN 30.4 pg (27.0-33.0); MEAN CORPUSCULAR HGB CONC 34.8 g/dl (32.0-36.5); MEAN CORPUSCULAR VOLUME 87.3 fl (80.0-96.0); MONO # 1.1 10^3/uL (0.0-0.8); MONO % 10.6 % (0.0-5.0); NEUTROPHILS # 7.6 10^3/uL (1.8-7.7); NEUTROPHILS % 75.2 % (36.0-66.0); PLATELET COUNT, AUTOMATED 177 10^3/uL (150-450); RED BLOOD COUNT 4.18 10^6/uL (4.00-5.40); WHITE BLOOD COUNT 10.1 10^3/uL (4.0-10.0)
[2018-05-03 14:10] LABS: CALCIUM LEVEL 9.5 MG/DL (8.8-10.2); CREATININE FOR GFR 0.94 MG/DL (0.55-1.30); GLOMERULAR FILTRATION RATE 59.7 (>32); MAGNESIUM LEVEL 1.9 MG/DL (1.8-2.4); POTASSIUM SERUM 4.2 MEQ/L (3.5-5.1)
[2018-05-03] MEDS ORDERED: traMADol 50 MG TAB PO ONE (14:30)
--- NOTE | 2018-05-03 15:13 | REP ---
Duplex extremity venous ultrasound: Right lower extremity History: Right lower extremity pain. Findings: The deep veins are anechoic and fully compressible from the groin to the popliteal fossa in the right lower extremity. Color flow imaging is homogeneous. Spectral Doppler interrogation demonstrates intact respiratory variation in flow and normal manual augmentation of flow. There is no evidence of deep vein thrombosis. Impression: Negative right lower extremity duplex venous ultrasound. No evidence of deep vein thrombosis. Electronically Signed by Ruperto Huerta MD 05/03/2018 03:05 P
[2018-05-03] MEDS ORDERED: ULTR50TA8 PO (15:22)
[2018-05-03] MEDS ORDERED: [UNRECOGNIZED DRUG - CODE] XX (15:29)
[2018-05-03 15:31] VITALS: BP 155/67
== END 2018-05-03 15:37 | disposition home or self-care (01) ==
LOC: M ED 11:32
DX: M79.661 Pain in right lower leg (principal); I10 Essential (primary) hypertension; Z86.718 Personal history of other venous thrombosis and embolism

== ENCOUNTER 2018-05-05 09:27 | Emergency (ER) | payer MEDICARE, BC ==
[~2018-05-05] VITALS: Ht 154.9 cm; Wt 68.2 kg
[~2018-05-05 09:27] MED LIST changes: +ULTR50TA8 PO; +[UNRECOGNIZED DRUG - CODE] XX
[2018-05-05] MEDS ORDERED: ACETAMINOPHEN 325 MG TAB PO ONE (09:45)
[2018-05-05] MEDS ORDERED: INDA125TA PO (09:46)
[2018-05-05] MEDS ORDERED: AMLO5TAB6 PO (09:46)
[2018-05-05 10:22] LABS: BASO % 0.3 % (0.0-1.0); EOS # 0.1 10^3/uL (0.0-0.50); EOS % 0.6 % (0.0-3.0); HEMATOCRIT 36.3 % (36.0-47.0); HEMOGLOBIN 12.6 g/dl (12.0-15.5); LYMPH # 1.3 10^3/uL (1.5-4.5); LYMPH % 11.1 % (24.0-44.0); MEAN CORPUSCULAR HEMOGLOBIN 29.8 pg (27.0-33.0); MEAN CORPUSCULAR HGB CONC 34.7 g/dl (32.0-36.5); MEAN CORPUSCULAR VOLUME 85.8 fl (80.0-96.0); MONO # 1.3 10^3/uL (0.0-0.8); MONO % 11.3 % (0.0-5.0); NEUTROPHILS # 8.6 10^3/uL (1.8-7.7); NEUTROPHILS % 76.4 % (36.0-66.0); PLATELET COUNT, AUTOMATED 199 10^3/uL (150-450); RED BLOOD COUNT 4.23 10^6/uL (4.00-5.40); WHITE BLOOD COUNT 11.3 10^3/uL (4.0-10.0)
--- NOTE | 2018-05-05 10:24 | REP ---
RIGHT HIP, AP PELVIS, THREE VIEWS: HISTORY: Pain. There is no acute fracture or dislocation. There is mild narrowing of the hip joint spaces with associated sclerosis. IMPRESSION: Degenerative change as described above. Electronically Signed by Rodrigo Hawkins MD 05/05/2018 10:27 A
--- NOTE | 2018-05-05 10:25 | REP ---
RIGHT FEMUR, TWO VIEWS: HISTORY: Pain. The proximal femur is not seen. There is no acute fracture or dislocation. There is mild narrowing of the knee joint space. Chondrocalcinosis is present. Osteophytes are present on the tibia and patella. IMPRESSION: Degenerative change as described above. Electronically Signed by Rodrigo Hawkins MD 05/05/2018 10:27 A
[2018-05-05 10:52] LABS: BLOOD UREA NITROGEN 21 MG/DL (7-18); C REACTIVE PROTEIN QUANTITATIV 7.66 MG/DL (0.00-0.30); CALCIUM LEVEL 9.3 MG/DL (8.8-10.2); CARBON DIOXIDE LEVEL 23 MEQ/L (21-32); CHLORIDE LEVEL 104 MEQ/L (98-107); CPK CREATINE PHOSPHOKINASE 85 U/L (26-192); GLOMERULAR FILTRATION RATE > 60.0 (>32); GLUCOSE, FASTING 129 MG/DL (70-100); POTASSIUM SERUM 3.9 MEQ/L (3.5-5.1); SODIUM LEVEL 136 MEQ/L (136-145)
[2018-05-05 10:53] LABS: ERYTHROCYTE SEDIMENTATION RATE 42 mm/hr (0-42)
[2018-05-05] MEDS ORDERED: ACETAMINOPH W/CODEINE #3 TAB UD PO ONE (12:45)
[2018-05-05 13:51] VITALS: BP 129/60
[2018-05-05] MEDS ORDERED: TYLETAB14 PO (14:15)
== END 2018-05-05 14:30 | disposition home or self-care (01) ==
LOC: M ED 09:27 → EDBD 09:27 → M ED 14:30
DX: M79.651 Pain in right thigh (principal)

== ENCOUNTER → 2018-05-07 | Outpatient (REF) | payer MEDICARE, BC ==
[~2018-05-07] MED LIST changes: +AMLO5TAB6 PO; +INDA125TA PO; +TYLETAB14 PO
[2018-05-07 12:59] LABS: BASO % 0.4 % (0.0-1.0); EOS % 0.1 % (0.0-3.0); HEMATOCRIT 37.5 % (36.0-47.0); LYMPH # 0.8 10^3/uL (1.5-4.5); LYMPH % 6.9 % (24.0-44.0); MEAN CORPUSCULAR HEMOGLOBIN 30.6 pg (27.0-33.0); MEAN CORPUSCULAR HGB CONC 34.7 g/dl (32.0-36.5); MEAN CORPUSCULAR VOLUME 88.2 fl (80.0-96.0); MONO # 1.4 10^3/uL (0.0-0.8); MONO % 12.5 % (0.0-5.0); NEUTROPHILS # 9.1 10^3/uL (1.8-7.7); NEUTROPHILS % 79.6 % (36.0-66.0); PLATELET COUNT, AUTOMATED 221 10^3/uL (150-450); RED BLOOD COUNT 4.25 10^6/uL (4.00-5.40); WHITE BLOOD COUNT 11.4 10^3/uL (4.0-10.0)
[2018-05-07 13:26] LABS: ERYTHROCYTE SEDIMENTATION RATE 74 mm/hr (0-42)
[2018-05-07 14:54] LABS: C REACTIVE PROTEIN QUANTITATIV 23.9 MG/DL (0.00-0.30); GLOMERULAR FILTRATION RATE 55.6 (>32); POTASSIUM SERUM 4.1 MEQ/L (3.5-5.1); URIC ACID 5.9 MG/DL (2.6-6.0)
== END ==
LOC: M LABDRAW1 11:57
PROVIDERS: ATTEND Orthopaedic Surgery
DX: M25.561 Pain in right knee (principal)

== ENCOUNTER → 2018-05-13 | Outpatient (REF) | payer MEDICARE, BC | LOC: M LAB REF 16:42 | PROVIDERS: ATTEND Nurse Practitioner Adult Health | DX: R79.82 Elevated C-reactive protein (CRP) (principal) ==

== ENCOUNTER → 2018-06-16 | Outpatient (REF) | payer MEDICARE, BC | LOC: M LAB REF 12:36 | PROVIDERS: ATTEND Nurse Practitioner Adult Health | DX: M10.9 Gout, unspecified (principal) ==